=== PATIENT | female | born 1940 | race Caucasian/White ===

== ENCOUNTER 2016-04-27 04:05 | Inpatient (IN) | payer OTHER, MEDICARE ==
[~2016-04-27] VITALS: Ht 157.5 cm; Wt 90.7 kg
[~2016-04-27 04:05] MED LIST: AMANTADINE100 M2 PO; METOPROLOL TART50 M1 PO; NORCO 325 MG-51 TAB PO
--- NOTE | 2016-04-27 09:40 | Operative Report ---
Operative/Inv Procedure Report Surgery Date: 04/27/16 Name of Procedure: Left total knee arthroplasty Pre-Operative Diagnosis: Primary osteoarthritis left knee Post-Operative Diagnosis: Primary osteoarthritis left knee Estimated Blood Loss: less than 50ml Surgeon/Air Intelligence Specialist: GINA MORGAN,OSWALD Rosas Anesthesia: general endotracheal tube IV Fluids: See anesthesia record Implants: [place] triathlon knee size 4 femur, size 4 tibia, 27 patella, 11 mm polyethylene Drains: None Specimens: Bone Tourniquet: 60 minutes Complications: None Condition: Stable Operative Indication: Patient is a [id number] female with severe osteoarthritis of the left knee which has failed conservative treatment. She was indicated surgical knee replacement. Risks and benefits of procedure were discussed with the patient detail in the office and she wished to proceed. Skilled set of hands was necessary provided by physician media assistant Contreras Rosas weighted with retraction positioning and component assembly throughout the case. Operative/Procedure Note Note: 300 procedure standard Incision made for total knee arthroscopy. Sharp dissection was carried down through the skin and subcutaneous tissue. A medial parapatellar arthrotomy was performed. The patella was everted and the fat pad was removed. Patellar cut was done with the patellar milling system and we are able to resect 10 mm of bone off the patella. We sized patella be a size 27 patella and the jig was placed on the patella for the lug nuts. Once this was done the patella was retracted laterally and protected and the knee was placed in flexion. Intramedullary canal of the femur was entered with a step drill. A distal femoral cutting guide was placed into the intramedullary canal with a 6 valgus cut and 10 mm resection. The distal femoral cut was made without, patient. Next the femoral sizing guide was placed on the distal femur and we sized the femur to be a size 4 femur. A size 4, 4-in-1 cutting block was placed on the distal femur and anterior posterior and chamfer cuts were made without complication. Once this was done the size 4 box cut guide was placed on the femur and the box cut for posterior stabilized knee was performed without, patient all bone was passed off as specimen. At this point the knee was retracted anteriorly after the cruciate ligament was removed and the menisci removed medially and laterally. Next step was to enter the intramedullary canal of the tibia. This was done with a step drill. The tibial cutting guide was placed down the intramedullary canal and a plan resection of 4 mm of bone off of the medial side of the tibia was performed without complication. Bone was passed off as specimen. The tibia was sized to be a size 4 tibia. Trial reduction was done with a 4 tibia, 4 femur and a 9 mm polyethylene insert. The knee had full extension and was stable to varus or valgus stress. Patella tracked nicely with a slight lateral release. The rotation of the tibial component was marked and the cuff once removed. The tibial component was pinned in place and the keel cut guide was made. All entrance removed the knee was pulse lavaged and the cement was mixed on the back table. Components were cemented in place with the tibial component cemented first followed by the femoral component and the patellar button. All excess cement was removed with curettes. The knee was placed in extension with a 9 mm [address] insert in place. Once the cement hardened the knee was again checked for stability there was slight laxity to varus and valgus stress so we went up to an 11 mm polyethylene trial. This allowed for full extension and flexion to 110. Flexion was limited by the patient's body size. It was stable to varus and valgus stress at 0 and 6 the trial insert was removed and a 11 mm polyethylene insert was opened and pinned into place on the tibial component. The knee was pulse lavaged. Tourniquet was released at 60 minutes. Any arterial bleeding was stopped with electrocautery. The arthrotomy is closed with #1 Vicryl interrupted sutures and the tissues were closed with #1 Vicryl and 2-0 Vicryl sutures. Skin was closed philip and sterile dressing was applied. This includes an operative report.
[2016-04-27] MEDS ORDERED: PERCOCET 5-3251 EACH PO (10:19)
[2016-04-27] MEDS ORDERED: COUMADIN5 M2 PO (10:19)
--- NOTE | 2016-04-27 10:23 | Patient Discharge Instructions ---
Discharge Instructions General Discharge Information You were seen/treated for: Left knee pain secondary to osteoarthritis You had these procedures: Left total knee replacement Watch for these problems: Increasing pain, redness, warmth, swelling. Drainage of any type from incision. Inability to bear weight on left leg. Fever greater than 101.5. Do not soak the wound: Yes No bath, but you may shower: Yes Other wound care: Keep wound clean and dry Special Instructions: You are taking a medication called Coumadin. Another name for this medication is warfarin. The purpose of this medication is blood thinning in order to prevent complication known as a blood clot. The dose of this medication is subject to change daily. It is based on lab work called INR. Your INR will be assessed daily in the beginning, and when it is stabilized, it will be assessed 2-[address] Garcia will be made aware of your INR, and will provide the appropriate dose of Coumadin for you to be taking daily. Please await specific instructions regarding your daily dose of Coumadin. Please follow-up with your PCP within a week of discharge Please follow-up with your neurologist within a week of discharge. PLEASE AVOID NARCOTICS IF POSSIBLE CAN WORSEN PATIENT DELIRIUM. USE TYELNOL NEEDED FOR PAIN FIRST LINE AGENT. USE NARCOTICS FOR SEVER PAIN(7-10) Diet Continue normal diet: Yes Recommended Diet: Regular Additional DIET Information: Advance as tolerated Activity Full Activity/No Limits: No Activity Self Limited: Yes Pounds, do NOT lift more than: 10 Acute Coronary Syndrome Inclusion Criteria At DC or during hospital stay patient has or had the following: ACS DIAGNOSIS No Discharge Core Measures Meds if any: Prescribed or Continued at Discharge Meds if any: NOT Prescribed or Continued at Discharge Congestive Heart Failure Inclusion Criteria At DC or during hospital stay patient has or had the following: CHF DIAGNOSIS No Discharge Core Measures Meds if any: Prescribed or Continued at Discharge Meds if any: NOT Prescribed or Continued at Discharge Cerebrovascular accident Inclusion Criteria At DC or during hospital stay patient has or had the following: CVA/TIA Diagnosis No Discharge Core Measures Meds if any: Prescribed or Continued at Discharge Meds if any: NOT Prescribed or Continued at Discharge Venous thromboembolism Inclusion Criteria VTE Diagnosis No VTE Type NONE VTE Confirmed by (Test) NONE Discharge Core Measures - Per Current guidelines, there needs to be overlap - treatment for the first 5 days of Warfarin therapy. - If discharged on Warfarin prior to 5 days of - overlap therapy, the patient will need to be - assessed for post discharge needs including - *Post discharge parental anticoagulation - *Warfarin and/or parental anticoagulation education - *Follow up date to check INR post discharge At least 5 days overlap therapy as Inpatient No Meds if any: Prescribed or Continued at Discharge Note: Overlap Therapy is Warfarin and Anticoagulant Meds if any: NOT Prescribed or Continued at Discharge
--- NOTE | 2016-04-27 10:25 | Surgical Discharge Summary ---
Visit Information Visit Dates Admission Date: 04/27/16 Discharge Date: 04/30/16 History of Present Illness Chief Complaint: Left knee pain secondary to unilateral primary osteoarthritis Medical History Neurological: Parkinson's disease Cardiovascular: hypertension Musculoskeletal: PRIOR LEFT WRIST FRACTURE Surgical History Pertinent Surgical History: non-contributory Psychosocial History Who Do You Live With? Family Services at Home: None What is Your Primary Language? Setswana Review of Systems: See H&P Hospital Course Course Attending Physician: OSWALD FUENTES MD Primary Care Physician: NIKOLAY CARDOZA MD Hospital Course: Alpa was admitted to the hospital on 04/27/2016 for an elective left total knee replacement. She tolerated the procedure well. She was transferred to a general surgical floor. Her diet was advanced and tolerated. Her vital signs were stable and within normal limits. On the night of 04/27/2016-04/28/2016 she appeared to have mental status change along with difficulty with speech and possible cranial nerve deficit. Differential diagnosis included drug induced delirium versus CVA. A stroke alert was called. A CT scan of her brain demonstrated prior infarct. Her primary care was transferred to the medical service. Allergies: Coded Allergies: Penicillins (Intermediate, RASH 04/27/16) grapefruit (UNKNOWN 04/27/16) Disposition Summary Disposition Principal Diagnosis: Left knee unilateral primary osteoarthritis Additional Diagnosis: None Discharge Disposition: SNF Discharge Instructions General Discharge Information Code Status: Full Code Patient's Diet: Regular, advance as tolerated Patient's Activity: Weight-bear as tolerated on left leg Follow-Up Instructions/Appts: Please contact Dr. Fuentes's office to arrange and/or confirm follow-up appointment. He would like for you to be seen in his office in 2 weeks to 4 weeks from date of surgery Medications at Discharge Discharge Medications: Continue taking these medications: Metoprolol Tartrate (Metoprolol Tartrate) 50 MG TABLET 1.5 Tablet ORAL TWICE DAILY Comments: Last Taken: 04/30/16 Time: 10:00 AM Amantadine HCl (Amantadine) 100 MG TABLET 100 Milligram ORAL TWICE DAILY Comments: Last Taken: 04/30/16 Time: 10:00 AM Start taking the following new medications: Oxycodone HCl/Acetaminophen (Percocet 5-325 MG Tablet) 5 MG-325 MG TABLET 1-2 Tablet ORAL EVERY 4-6 HOURS as needed for pain Qty = 15 No Refills Comments: NOT TAKEN IN HOSPITAL. Warfarin Sodium (Coumadin) 5 MG TABLET 1 Tablet ORAL DAILY Qty = 30 No Refills Comments: Last Taken: 04/29/16 Time: 5:00 PM Acetaminophen (Tylenol) 325 MG TABLET 650 Milligram ORAL DAILY Qty = 30 No Refills
[2016-04-27 12:00] VITALS: BP 168/88
[2016-04-27 14:17] VITALS: BP 160/90
--- NOTE | 2016-04-27 14:21 | PN- Student ---
GRAY PARISH 04/27/16 1787: Subjective Subjective: Patient denies any acute events in immediate post op period, but is complaining of a headache and pain in her upper left thigh. She denies any chest pain, shortness of breath, nausea, vomiting, or numbness or tingling in her extremities. Objective Objective: Vitals: BP:168/88 Pulse:100 Resp:18 Temp:98.5F SpO2: 95% 1LPM NC Physical Exam: General: Well-appearing, in no acute distress. Alert and oriented to person place time and event. Skin: [place] warm and dry. Head: Normocephalic, atraumatic. Eyes: PERRL, EOMI. Cardiac: Regular rate and rhythm, normal S1/S2. No murmurs, rubs or gallops. Pulmonary: Clear to auscultation bilaterally, no wheezes, rales or rhonchi. Abdomen: Normoactive bowel sounds, soft, non-distended, non-tender. Extremities: 2+ bilateral radial and dorsalis pedis pulses. Right arm positive for resting temors. Left leg wrapped in ute bandage with OnQ in place with no obvious drainage. Left foot mildy pitting edema and erythema. Motor and sensory intact. Results Results: Microbiology 04/27 0800 URINE ROUT: Urine Culture - RECD Assessment/Plan Assessment: Patient is a 75 year old female with a history of parkinson's diesese who is POD #0 s/p left total knee replacement without complications. Plan: -Continue pain managment as ordered. -Regular diet. -Initiate physical therapy, weight bearing as tolerated. -Monitor I/O's. -Discontinue strong in am 04/28/16. -Continue home meds prn. -ALPs, encourage ambulation as permitted and coumadin for DVT ppx. -Encourage incentive spirometry. -Wean from oxygen. -Follow up with am labs. Will discuss above with PA surgical team. Gray HENRY-S2 MANE SILVEIRA 04/27/16 2587: Assessment/Plan Plan: agree with above PA-S note janice-operative vancomycin x 1 coumadin - dvt ppx may consider hospitalist consult will d/w
[2016-04-27 20:30] VITALS: BP 130/70
[2016-04-28 04:24] VITALS: BP 130/72
--- NOTE | 2016-04-28 04:35 | NUR ---
NSG NOTE: PT BECOMING INCREASINGLY CONFUSED AND AGITATED THROUGHOUT THE NIGHT. PT SCREAMING, BECOMING COMBATIVE AND TRYING TO CLIMB OUT OF BED. SURGICAL PA BRIANA CALLED AND MADE AWARE. ORDER OBTAINED FOR ONE TIME DOSE OF IV ATIVAN AND ADMINISTERED TO PT. PT APPEARS TO BECOMING LESS AGITATED. WILL MONITOR.
--- NOTE | 2016-04-28 05:27 | Event Note ---
Event Note Event Note: 75 year-old female with a past medical history significant for hypertension, Parkinson's disease, osteoarthritis, diverticular disease, colonic polyps status post polypectomy on May 17, 2011, total right knee replacement, obesity. She is status post left TKA. Called by surgical PA to evaluate slurring of speech. Surgical PA was intially called to eval agitation. She had rec'd ativan. Unknown baseline. Afebrile, BP 140/76, HR 70, SaO2 96% on 2L NC. A,A,Ox to self. +S1/S2 RRR, CTABL. Limited neurological exam because patient is unable to fully participate. Right facial droop, 3/5 strength RUE, 5/5 LUE, decreased right hand cloth examiner hand strength. CN II,III,IV- intact. Garbled speech. EKG NSR, RRR Suspect acute CVA versus post-op or drug induced delirium. Plan: Stat CT F/u MRI Cont tele monitor neurochecks q4 Aspirin CA Lipid profile Keep NPO Formal swallow eval Neurology consultation
--- NOTE | 2016-04-28 05:32 | PN- Orthopedic ---
Subjective Subjective: S/P LEFT TKA CALLED BY NURSING WITH C/O AGITATION/COMBATIVE BEHAVIOR PULLING AT DRESSINGS AND TRYING TO GET OUT OF BED. ATIVAN 1MG GIVEN UPON ARRIVAL TO FLOOR PATIENT ALERT TO NAME PLACE AND PRIMARY PHYSICIAN NAME NOT SURE WHY SHE IS AT [facility] AND DID NOT KNOW SHE HAD SURGERY DENIES CP, SOB, BLURRED VISION SLURRING SPEECH Objective Vital Signs and I&Os Vital Signs Date Time Temp Pulse Resp B/P Pulse O2 O2 Flow FiO2 Ox Delivery Rate 04/28 0509 96 Nasal 1.0L Cannula 04/28 0424 97.9 68 20 130/72 97 Nasal 1.0L Cannula 04/28 0000 98 Nasal 1.0L Cannula 04/27 2030 98.1 64 20 130/70 98 Nasal 1.0L Cannula 04/27 1417 98.1 87 20 160/90 96 Nasal 2.0L Cannula 04/27 1200 97.5 100 18 168/88 95 Nasal 2.0L Cannula 04/27 1200 95 Nasal 2.0L Cannula Intake & Output 04/28 0800 04/28 0000 04/27 1600 04/27 0800 04/27 0000 04/26 1600 Intake Total 715 800 Output Total 1000 Balance 715 -200 Intake, IV 475 300 Intake, Oral 240 500 Output, Urine 1000 Patient 200 lb Weight Physical Exam: HEENT: ANA, RIGHT SIDED FACIAL DROOP, RIGHT TOUNGE DEVIATION CV: RRR LUNGS: CLEAR ABD: SOFT, +BS EXT: PARKINSON LIKE TREMORS BILAT UPPER EXTREMITIES WARM, PULSES INTACT Assessment/Plan Assessment/Plan R/O NEW ONSET STROKE PLAN RR/STROKE CALLED EKG, STAT LABS STAT HEAD CT Core Measures/Miscellaneous Venous Thromboembolism VTE Risk Factors: Age > 40, Surgery VTE Contraindications: No Contraindications VTE Diagnosis: No Beta Raven Is Beta Raven a Home Med? No Antibiotics Is Patient on Antibiotics? Yes
[2016-04-28 05:37] LABS: ABSOLUTE BASOPHIL COUNT 0 /CUMM (0.0-0.2); ABSOLUTE EOSINOPHIL COUNT 0 /CUMM (0.0-0.7); ABSOLUTE GRANULOCYTE CT 10.4 /CUMM (1.4-6.5); ABSOLUTE LYMPH COUNT 0.7 /CUMM (1.2-3.4); ABSOLUTE MONOCYTE COUNT 1.3 /CUMM (0.10-0.60); BASOPHIL % 0 % (0.0-2.0); EOSINOPHIL % 0.1 % (0-5); GRANULOCYTE % 83.9 % (42.2-75.2); HEMATOCRIT 37.9 % (37-47); MEAN CORPUSCULAR HGB 32.5 PG (27.0-31.0); MEAN CORPUSCULAR HGB CONC 33.2 G/DL (33.0-37.0); MEAN PLATELET VOLUME 11.1 FL (7.4-10.4); PLATELET COUNT 115 /CUMM (130-400); RBC DISTRIBUTION WIDTH 13.6 % (11.5-14.5); RED BLOOD CELL CT 3.87 /CUMM (4.20-5.40); WHITE BLOOD CELL COUNT 12.4 /CUMM (4.8-10.8)
[2016-04-28 05:40] LABS: PT 12.9 SEC (9.4-12.5)
[2016-04-28 05:57] VITALS: BP 108/60
--- NOTE | 2016-04-28 06:01 | CT SCAN REPORT ---
EXAMINATION: CT HEAD WITHOUT CONTRAST CLINICAL INFORMATION: Slurred speech COMPARISON: None TECHNIQUE: Contiguous axial imaging was performed from the skull base to vertex without intravenous administration of contrast. DLP: 1058.32 mGy-cm FINDINGS: There is age-appropriate mild atrophy with prominence of the ventricles and sulci. There is hypodensity of the external capsule on the left measuring 6 mm, axial image 22 (2). This is consistent with a small lacunar infarct. There is no evidence of acute intracranial hemorrhage or acute territorial infarction. No abnormal mass effect or midline shift is seen. Lynn to white matter differentiation is well preserved. No extra-axial fluid collections are identified. The ventricles are normal in size. Normal variant of cavum septum pellucidum and cavum septum vergae. There is vascular calcification of the internal carotid arteries bilaterally. The osseous structures and soft tissues are normal. The mastoid air cells and visualized portions of the paranasal sinuses are well aerated. IMPRESSION: No acute intracranial abnormality. Small lacunar infarct in the external capsule on the left. This critical result was discussed with Dr. Costello on 04/28/2016, 5:50 AM and it was ascertained that the content and urgency of the report was understood at the time of direct communication.
--- NOTE | 2016-04-28 07:42 | PN- Orthopedic ---
Surgical Brief Attending Note Brief Attending Note: The notes from her this morning were reviewed. The physician mailing machine assistant Rock Brewer had contacted me this morning and let me know by phone that the patient had been sent down for a CAT scan due to possible stroke. The patient seen this morning she is not combative. She is awake and alert. We will continue his care as per medicine recommendations. As far as her knee goes the left knee is postop day [address]ings in place. The left lower extremity is grossly neurovascularly intact. Plan continue care per medicine for possible CVA or TIA. The patient will have labs followed up today. She will start physical therapy.
[2016-04-28 08:15] VITALS: BP 122/70
--- NOTE | 2016-04-28 08:16 | PN- Housestaff ---
TEQUILA MORGAN,JAMIE 04/28/16 0816: Subjective Follow-up For: Follow-up acute stroke under evaluation Parkinsonism Total left knee arthroplasty on 04/27/2016 Complaints: no complaints Tele-Events Since Last Visit: Normal sinus rhythm, no any overnight events Subjective: Patient is seen and examined at the bedside. She was not oriented to time, place and person. Although she is following all the verbal command. Her speech is less comprehensive, slurred, but she was able to form complete sentences. Review of Systems Constitutional: Denies: no symptoms. Comments: Cannot comment because of the patients clinical status Objective Last 24 Hrs of Vital Signs/I&O Vital Signs Date Time Temp Pulse Resp B/P Pulse O2 O2 Flow FiO2 Ox Delivery Rate 04/28 1716 89 138/60 04/28 1607 99.4 90 20 138/60 97 Nasal 1.0L Cannula 04/28 1230 Nasal 1.0L Cannula 04/28 1205 Nasal 1.0L Cannula 04/28 0815 98.1 72 20 122/70 98 Nasal 1.0L Cannula 04/28 0800 Nasal 1.0L Cannula 04/28 0557 97.7 68 18 108/60 97 Nasal Cannula 04/28 0509 96 Nasal 1.0L Cannula 04/28 0424 97.9 68 20 130/72 97 Nasal 1.0L Cannula 04/28 0000 98 Nasal 1.0L Cannula 04/27 2030 98.1 64 20 130/70 98 Nasal 1.0L Cannula Intake & Output 04/28 1600 04/28 0800 04/28 0000 Intake Total 375 715 Output Total 300 800 Balance -300 -425 715 Intake, IV 375 475 Intake, Oral 240 Output, Urine 300 800 Physical Exam General Appearance: Alert, Cooperative, No Acute Distress Skin: left knee is dressed in dressing Cardiovascular: Normal S1, Normal S2, No Murmurs Lungs: Clear to Auscultation, Normal Air Movement Abdomen: Soft, distended Neurological: speech is less comprehensable , left facial droop, able to lift both hands against gravity, able to move both legs Extremities: bilateral non pitting edema, pulses are palpable, left knee was non tender Vascular: Normal Pulses, Pulses Symmetrical Assessment/Plan Assessment: Patient is a 75-year-old morbidly obese female with significant past medical history of Parkinsons Disease, diverticular disease, colonic polyps status post polypectomy(2011), hypertension, severe osteoarthritis s/p total right knee replacement (2011), admitted for total left knee replacement done on 04/27/2016. On 04/27/2016 She had an episode of slurring of speech along with weakness in right upper and lower extremity which lasted for couple of hours. 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 As she feels bedside swallow evaluation initially, she was given P/R aspirin. Follow-up MRI on 04/28/2016 confirmed these findings and carotid Doppler showed No evidence for hemodynamically significant stenosis in the external/internal carotid arteries.Neurologic consultation was taken and they advised to follow-up with Dr. Phillips as an outpatient. Problem list- total left knee replacement on 04/27/2016 Parkinsons Disease, diverticular disease, colonic polyps status post polypectomy(2011), hypertension, severe osteoarthritis s/p total right knee replacement (2011), Plan - Possible discharge tomorrow Postoperative delirium with mild cognitive impairment * We will continue telemetry monitoring * Neuro check every 4 hourly * Strict intake output charting * Avoid sedating/hypnotics * We will recheck CBC, BEP, lipid profile tomorrow total left knee replacement on 04/27/2016 * Pain medication according to her pain scale * We will continue tab warfarin 5 mgs once a day for 2-4 weeks * Physical therapy * Early mobilization/OOB Parkinsonism * We will continue tab Amantadine 100 mgs BID * advised to follow-up with Dr. Phillips as an outpatient. Hypertension * We will continue tablet metoprolol 50 milligrams 1.5 tablet twice a day * We will start her on Atorvastatin 40mg and revise dose according to lipid profile Diet -heart healthy diet, she passed swallow evaluation on 04/28/2016 DVT prophylaxis-Early mobilization/warfarin CODE STATUS-full code Problem List: 1. Status post total left knee replacement 2. Morbid obesity 3. Hypertension 4. Parkinsonism 5. Postoperative delirium Pain Ratin Pain Location: left knee Pain Goal: Remain pain free Pain Plan: mild Tomorrow's Labs & Rationales: CBC, BEP-post operative follow-up Lipid panel -screening for hyperlipidemia DVT/Prophylaxis: mechanical, pharmacological LANA PACHECO MD 04/28/16 1246: Attending Review Statement Attending Statement Attending MD Statement: examined this patient, discuss w/resident/PA/IMPLEMENTATION ANALYST, agreed w/resident/PA/IMPLEMENTATION ANALYST, reviewed EMR data (avail) Attending Assessment/Plan: 75F with left total knee replacement yesterday, developed slurred speech and right sided weakness ovrnight, transferred to medicine service for possible CVA. Today with confused speech, mild left facial droop, no extremity weakness, cranial nerves intact. CT shows acute vs chronic lacunar infarct, MRI negative for infarction or bleed. No telemetry events. BP 120/86. Plan - Continue on telemetry - ASA and statin - Neurology consult - Obtain carotid doppler - Formal swallow valuation (failed bedside swallow) - Ortho recommendations for knee - Pain control - Neuro checks - PT eval - DVT PPx
--- NOTE | 2016-04-28 08:27 | NUR ---
NSG NOTE: PT REMAINS CONFUSED BUT BECOMING LESS ANXIOUS AND AGITATED AFTER ADMINISTRATION OF IV ATIVAN. PT STILL PULLING AT BONILLA AND L KNEE DSG. PT ALSO NOTED TO HAVE INCREASED IN SLURRING OF SPEECH. SURGICAL ELAINE WARREN AND RESIDENT OLEG IN ROOM TO ASSESS PT. PER RESIDENT OLEG, PT SHOWING SLIGHT RIGHT FACIAL DROOP ALONG WITH SLURRING OF SPEECH. RAPID RESPONSE CALLED. STAT EKG ORDERED AND DONE AT BEDSIDE BY MST. LABS ORDERED AND DRAWN. PT PLACED ON HEART MONITOR. ORDER PLACED FOR STAT CT HEAD AND TRANSFER TO TELEMETRY. NURSE PROSTHODONTIST DOWN WITH PT TO CT SCAN. REPORT CALLED TO KHALIDA HERNANDEZ. SEE RAPID RESPONSE SHEET.
--- NOTE | 2016-04-28 08:51 | NUR ---
PHYSICAL THERAPY. Pt TRANSFERED TO TELE POD-1 S/P L TKA W/ STROKE ALERT. HEAD CT DEMONSTRATES SMALL L LACUNAR INFARCT, PENDING MRI AND CAROTID US. ORTHO NOTE RECOMMENDS CONTINUED PT. PT WILL F/U APPROPRIATE, DEFERRING UNTIL WORK-UP COMPLETE.
--- NOTE | 2016-04-28 11:19 | NUR ---
SPEECH THERAPY: ORDER RECEIVED FOR SWALLOW EVALUATION. PT CURRENTLY PARTICIPATING IN ULTRASOUND, THEN MRI. UNABLE TO BE SEEN. RN TO PAGE ST WHEN PT RETURNS.
--- NOTE | 2016-04-28 11:20 | MRI REPORT ---
EXAMINATION: MR BRAIN WITHOUT CONTRAST CLINICAL INFORMATION: 75-year-old woman with weakness and confusion. COMPARISON: 04/28/[address] TECHNIQUE: MRI of the brain without contrast was obtained using routine sequences. FINDINGS: Images are degraded by patient motion. Mild chronic microvascular ischemic changes are suggested throughout the supratentorial white matter. No focal reduced diffusion is seen to suggest acute or subacute cerebral ischemia. No intracranial mass, intracerebral edema, intra-axial blood products, midline shift, or extra-axial collection is visualized. The ventricles and sulcal spaces appear normal. Minimal mucosal thickening is noted in the maxillary sinuses. IMPRESSION: Motion degraded exam demonstrates no convincing evidence of acute cerebral ischemia or hemorrhage. Mild presumed chronic small vessel ischemic changes.
--- NOTE | 2016-04-28 11:55 | ULTRASOUND REPORT ---
EXAMINATION: DUPLEX BILATERAL CAROTID ULTRASOUND CLINICAL INFORMATION: Left sided acute lacunar infarct.. COMPARISON: None. TECHNIQUE: Real-time ultrasound and Doppler techniques (integrating B-mode 2D vascular images, Doppler spectral analysis and color flow Doppler imaging) were utilized to interrogate the extracranial carotid and vertebral arteries bilaterally. The degree of stenosis determined by criteria similar to NASCET. FINDINGS: Right side: 1. Minimal amount of plaque is seen in the ECA/ICA region. 2. The common carotid artery velocity is 103 cm/s. 3. The internal carotid artery velocities are 65 cm/s systolic and 16 cm/s diastolic. 4. The external carotid artery velocity is 90 cm/s. Left side: 1. Small amount of plaque is seen in the ECA/ICA region. 2. The common carotid artery velocity is 91 cm/s. 3. The internal carotid artery velocities are 66 cm/s systolic and 15 cm/s diastolic. 4. The external carotid artery velocity is 118 cm/s. ADDITIONAL FINDINGS: 1. The vertebral arteries show antegrade flow. IMPRESSION: 1. RIGHT: Minimal, nonhemodynamically significant stenosis of the proximal right internal carotid artery corresponding to a 0-49% stenosis by velocity criteria. 2. LEFT: Minimal, nonhemodynamically significant stenosis of the proximal left internal carotid artery corresponding to a 0-49% stenosis by velocity criteria. 3. No evidence for hemodynamically significant stenosis in the external carotid arteries.
--- NOTE | 2016-04-28 12:56 | Cons- Neurology ---
General Information and HPI Consulting Request Date of Consult: 04/28/16 Requested By: GINA MORGAN,OSWALD Taveras History of Present Illness: 25-year-old female with history of Parkinson's disease, questionable mild dementia and degenerative joint disease, found to be agitated and dysarthric following knee surgery. Stroke syndrome was considered however subsequent MRI of the brain was unremarkable. Neurology has been asked to comment. She has no known history of TIA or CVA. Allergies/Medications Allergies: Coded Allergies: Penicillins (Intermediate, RASH 04/27/16) grapefruit (UNKNOWN 04/27/16) Home Med List: Amantadine HCl (Amantadine) 100 MG TABLET 100 MG PO BID PARKINSONS (Reported) Metoprolol Tartrate 50 MG TABLET 1.5 TAB PO BID BP (Reported) Review of Systems Review of Systems: Limited however notable for diminished hearing, shuffling gait, joint pains and reported confusion. No history of diplopia, chest pain, vomiting, cough or abnormal bleeding Past History Medical History Neurological: Parkinson's disease EENT: NONE Cardiovascular: hypertension Respiratory: NONE Gastrointestinal: NONE Hepatic: NONE Renal: NONE Musculoskeletal: degen joint disease, osteoarthritis, PRIOR LEFT WRIST FRACTURE Psychiatric: NONE Endocrine: hypothyroidism, (??) Blood Disorders: NONE Cancer(s): NONE BUSINESS SERVICES ADMINISTRATOR/Reproductive: NONE Surgical History Surgical History: non-contributory Psychosocial History Services at Home: None Smoking Status: Unknown If Ever Smoked Exam & Diagnostic Data Vital Signs and I&O Vital Signs Date Time Temp Pulse Resp B/P Pulse O2 O2 Flow FiO2 Ox Delivery Rate 04/28 1230 Nasal 1.0L Cannula 04/28 1205 Nasal 1.0L Cannula 04/28 0815 98.1 72 20 122/70 98 Nasal 1.0L Cannula 04/28 0557 97.7 68 18 108/60 97 Nasal Cannula 04/28 0509 96 Nasal 1.0L Cannula 04/28 0424 97.9 68 20 130/72 97 Nasal 1.0L Cannula 04/28 0000 98 Nasal 1.0L Cannula 04/27 2030 98.1 64 20 130/70 98 Nasal 1.0L Cannula 04/27 1417 98.1 87 20 160/90 96 Nasal 2.0L Cannula Intake & Output 04/28 1600 04/28 0800 04/28 0000 Intake Total 375 715 Output Total 800 Balance -425 715 Intake, IV 375 475 Intake, Oral 240 Output, Urine 800 Elderly, obese white female in no acute distress. The head was normocephalic and atraumatic. She was awake, alert and cooperative. Speech was fluent. She knew the name of our current president however was disoriented to month. Pupils were equal and reactive. Extraocular movements were full. Facial strength was intact bilaterally. Hearing was impaired. Tongue was midline. Motor examination showed increased tone at the wrists bilaterally. There was no resting tremor. There was no lateralizing weakness however manual muscle testing was limited in the left lower extremity due to her recent surgery. Joint position sense was intact. Plantars were equivocal. Assessment/Plan Assessment: The clinical history is suggestive of postoperative delirium as opposed to stroke syndrome. Her examination is nonfocal and her MRI was unrevealing. There may be some underlying mild cognitive impairment. She has been a patient of my associate, Dr. Phillips. We will attempt to review her prior records. Recommendations: We would wish to avoid nonessential narcotic analgesics, soporific agents or sedatives. She should be up and around as per the orthopedic surgery service. She may continue her amantadine which she has been taking for her Parkinson's disease. Follow-up would be advised with Dr. Phillips within several weeks following her discharge. Consult Acknowledgment - Thank you for your consult request.
[2016-04-28 16:07] VITALS: BP 138/60
[2016-04-28 23:29] VITALS: BP 128/80
--- NOTE | 2016-04-29 06:50 | PN- Orthopedic ---
See Addendum Subjective Subjective: POD #2 s/p left TKR. Resting in bed. No complaints of pain at present. Denies N/V, F/C, CP/SOB. Tolerating a regular diet. Strong in place. Objective Vital Signs and I&Os Vital Signs Date Time Temp Pulse Resp B/P Pulse O2 O2 Flow FiO2 Ox Delivery Rate 04/29 0929 132/80 04/29 0903 96 Nasal 1.0L Cannula 04/29 0810 98.0 88 20 132/80 92 Room Air 04/29 0000 Nasal 1.0L Cannula 04/28 2329 98.7 90 20 128/80 92 Room Air 04/28 1716 89 138/60 04/28 1607 99.4 90 20 138/60 97 Nasal 1.0L Cannula 04/28 1600 Nasal 1.0L Cannula Intake & Output 04/29 1600 04/29 0800 04/29 0000 04/28 1600 04/28 0800 04/28 0000 Intake Total 600 1080 375 715 Output Total 6650 300 300 800 Balance -6050 780 -300 -425 715 Intake, IV 600 600 375 475 Intake, Oral 480 240 Output, Urine 6650 300 300 800 Physical Exam: Gen: AAOx1 in NAD, family at bedside-patient at baseline Cor: S1+S2+ Lungs: CTA mat Abd: soft, NT, ND, +BS x4 Ext: dressing to left leg changed. Incision C/D/I with philip. No drainage or erythema noted. Edema noted surrounding knee incision. Current Medications: Current Medications Sig/[place] Start time Last Medication Dose Route Stop Time Status Admin Al Hydroxide/Mg 30 ML Q6P PRN 04/27 1230 AC Hydroxide PO Amantadine HCl 100 MG BID 04/27 1000 AC 04/29 PO 0929 Aspirin 81 MG DAILY 04/28 1616 DC 04/28 PO 1716 Atorvastatin Calcium 40 MG 1700 04/28 1700 DC 04/28 PO 2120 Dextrose/Sodium 1,000 ML Q13H 04/28 0545 DC 04/29 Chloride IV 1012 Docusate Sodium 100 MG .STK-MED ONE 04/28 2109 DC PO 04/28 211 Docusate Sodium 100 MG BID 04/27 2200 AC 04/29 PO 1000 Losartan Potassium 25 MG DAILY 04/28 1523 AC 04/29 PO 0929 Metoprolol Tartrate 75 MG BID 04/28 2200 AC 04/29 PO 0929 Metoprolol Tartrate 75 MG BID 04/28 2200 CAN PO Morphine Sulfate 2 MG Q3P PRN 04/27 1230 DC 04/27 IV 1401 Morphine Sulfate 4 MG Q3P PRN 04/27 1230 DC IV Ondansetron HCl 4 MG Q6P PRN 04/27 1230 AC IV Oxycodone/ 1 TAB Q4P PRN 04/27 1230 DC 04/28 Acetaminophen PO 211 Oxycodone/ 2 TAB Q4P PRN 04/27 1230 DC 04/28 Acetaminophen PO 003 Polyethylene Glycol 17 GM DAILY NEEDED PRN 04/27 1230 AC PO Ropivacaine 500 ML ONCE ONE 04/27 0945 DC ON-Q Ball 1 BAG INJ 04/29 1144 Senna/Docusate Sodium 2 TAB AT BEDTIME NEED.. 04/27 1230 AC 04/29 PO 0930 Warfarin Sodium 5 MG COUMADIN 1700 ONE 04/29 1700 AC PO 04/29 1701 Warfarin Sodium 5 MG COUMADIN 1700 ONE 04/28 1700 DC 04/28 PO 04/28 1701 2114 Results Last 48 Hours of Labs: Laboratory Tests 04/29 04/28 04/28 0925 0622 0600 Chemistry Sodium (137 - 145 mmol/L) 133 L Cancelled Potassium (3.5 - 5.1 mmol/L) 3.9 Cancelled Chloride (98 - 107 mmol/L) 103 Cancelled Carbon Dioxide (22 - 30 mmol/L) 26 Cancelled Anion Gap (5 - 16) 4 L Cancelled BUN (7 - 17 mg/dL) 11 Cancelled Creatinine (0.5 - 1.0 mg/dL) 0.7 Cancelled Estimated GFR (>60 ml/min) > 60 BUN/Creatinine Ratio (7 - 25 %) 15.7 Cancelled Troponin I (< 0.11 ng/ml) < 0.01 Triglycerides (<150 mg/dL) 51 Cholesterol (<200 MG/DL) 126 LDL Cholesterol, Calc (65 - 129 mg/dL) 62 L HDL Cholesterol (40 - 60 mg/dL) 54 Cholesterol/HDL Ratio (0.00 - 4.23 %) 2 Coagulation PT (9.4 - 12.5 SEC) 14.4 H Cancelled INR (0.90 - 1.19) 1.38 H Cancelled Hematology CBC w Diff NO MAN DIFF REQ Cancelled WBC (4.8 - 10.8 /CUMM) 9.0 Cancelled RBC (4.20 - 5.40 /CUMM) 3.21 L Cancelled Hgb (12.0 - 16.0 G/DL) 10.5 L Cancelled Hct (37 - 47 %) 31.7 L Cancelled MCV (81.0 - 99.0 FL) 98.7 Cancelled MCH (27.0 - 31.0 PG) 32.6 H Cancelled RDW (11.5 - 14.5 %) 13.8 Cancelled Plt Count (130 - 400 /CUMM) 84 L Cancelled MPV (7.4 - 10.4 FL) 12.0 H Cancelled Gran % (42.2 - 75.2 %) 69.0 Lymphocytes % (20.5 - 51.1 %) 12.9 L Monocytes % (1.7 - 9.3 %) 16.5 H Eosinophils % (0 - 5 %) 1.3 Basophils % (0.0 - 2.0 %) 0.3 Absolute Granulocytes (1.4 - 6.5 /CUMM) 6.2 Absolute Lymphocytes (1.2 - 3.4 /CUMM) 1.2 Absolute Monocytes (0.10 - 0.60 /CUMM) 1.5 H Absolute Eosinophils (0.0 - 0.7 /CUMM) 0.1 Absolute Basophils (0.0 - 0.2 /CUMM) 0 PUBS MCHC (33.0 - 37.0 G/DL) 33.0 Cancelled 04/28 0500 Chemistry Sodium (137 - 145 mmol/L) 138 Potassium (3.5 - 5.1 mmol/L) 4.6 Chloride (98 - 107 mmol/L) 104 Carbon Dioxide (22 - 30 mmol/L) 26 Anion Gap (5 - 16) 9 BUN (7 - 17 mg/dL) 14 Creatinine (0.5 - 1.0 mg/dL) 0.7 Estimated GFR (>60 ml/min) > 60 BUN/Creatinine Ratio (7 - 25 %) 20.0 Coagulation PT (9.4 - 12.5 SEC) 12.9 H INR (0.90 - 1.19) 1.23 H Hematology CBC w Diff NO MAN DIFF REQ WBC (4.8 - 10.8 /CUMM) 12.4 H RBC (4.20 - 5.40 /CUMM) 3.87 L Hgb (12.0 - 16.0 G/DL) 12.6 Hct (37 - 47 %) 37.9 MCV (81.0 - 99.0 FL) 98.0 MCH (27.0 - 31.0 PG) 32.5 H RDW (11.5 - 14.5 %) 13.6 Plt Count (130 - 400 /CUMM) 115 L MPV (7.4 - 10.4 FL) 11.1 H Gran % (42.2 - 75.2 %) 83.9 H Lymphocytes % (20.5 - 51.1 %) 5.8 L Monocytes % (1.7 - 9.3 %) 10.2 H Eosinophils % (0 - 5 %) 0.1 Basophils % (0.0 - 2.0 %) 0 L Absolute Granulocytes (1.4 - 6.5 /CUMM) 10.4 H Absolute Lymphocytes (1.2 - 3.4 /CUMM) 0.7 L Absolute Monocytes (0.10 - 0.60 /CUMM) 1.3 H Absolute Eosinophils (0.0 - 0.7 /CUMM) 0 Absolute Basophils (0.0 - 0.2 /CUMM) 0 PUBS MCHC (33.0 - 37.0 G/DL) 33.2 Assessment/Plan Assessment/Plan A: POD #2 s/p left TKR; AVSS. Plan: D/C strong catheter. Continue PT mobilization. Case management to eval for STR. Care per primary team. Continue bowel regimen. Core Measures/Miscellaneous Venous Thromboembolism VTE Risk Factors: Age > 40, Surgery VTE Contraindications: No Contraindications VTE Diagnosis: No Beta Raven Is Beta Raven a Home Med? No Antibiotics Is Patient on Antibiotics? Yes
[2016-04-29 08:10] VITALS: BP 132/80
--- NOTE | 2016-04-29 08:58 | PN- Housestaff ---
TEQUILA MORGAN,JAMIE 04/29/16 0858: Subjective Follow-up For: Follow-up acute stroke under evaluation Parkinsonism Total left knee arthroplasty on 04/27/2016 Complaints: no complaints Tele-Events Since Last Visit: EZ OBRIEN Subjective: Patient is seen and examined at the bedside. Her speech is slurred but comprehensible. She was feeling very sleepy. According to the nurse, patient was agitated overnight so was given percocet. She was refusing all blood work up in morning. Review of Systems Constitutional: Denies: no symptoms. Comments: Cannot comment because of the patient's clinical condition Objective Last 24 Hrs of Vital Signs/I&O Vital Signs Date Time Temp Pulse Resp B/P Pulse O2 O2 Flow FiO2 Ox Delivery Rate 04/29 0929 132/80 04/29 0903 96 Nasal 1.0L Cannula 04/29 0810 98.0 88 20 132/80 92 Room Air 04/29 0000 Nasal 1.0L Cannula 04/28 2329 98.7 90 20 128/80 92 Room Air 04/28 1716 89 138/60 04/28 1607 99.4 90 20 138/60 97 Nasal 1.0L Cannula 04/28 1600 Nasal 1.0L Cannula Intake & Output 04/29 1600 04/29 0800 04/29 0000 Intake Total 600 1080 Output Total 6650 300 Balance -6050 780 Intake, IV 600 600 Intake, Oral 480 Output, Urine 6650 300 Physical Exam General Appearance: Cooperative, No Acute Distress Skin: No Rashes, No Breakdown, left knee is well dressed under dressing. Cardiovascular: Normal S1, Normal S2 Lungs: Clear to Auscultation, Normal Air Movement Abdomen: Soft, No Tenderness Neurological: slurred speech Extremities: bilateral non pitting edema Vascular: Normal Pulses Assessment/Plan Assessment: Patient is a 75-year-old morbidly obese female with significant past medical history of Parkinsons Disease, diverticular disease, colonic polyps status post polypectomy(2011), hypertension, severe osteoarthritis s/p total right knee replacement (2011), admitted for total left knee replacement done on 04/27/2016. On 04/27/2016 She had an episode of slurring of speech along with weakness in right upper and lower extremity which lasted for couple of hours. 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 As she feels bedside swallow evaluation initially, she was given P/R aspirin. Follow-up MRI on 04/28/2016 confirmed these findings and carotid Doppler showed No evidence for hemodynamically significant stenosis in the external/internal carotid arteries.Neurologic consultation was taken and they advised to follow-up with Dr. Phillips as an outpatient. Problem list- total left knee replacement on 04/27/2016 Parkinsons Disease, diverticular disease, colonic polyps status post polypectomy(2011), hypertension, severe osteoarthritis s/p total right knee replacement (2011), Plan - Possible discharge tomorrow Postoperative delirium with mild cognitive impairment * We will continue telemetry monitoring * Neuro check every 4 hourly * Intake output charting * Avoid sedating/hypnotics - No PERCOCET/NO MORPHINE * We will recheck CBC - Hb 10.5, BEP- wnl, lipid profile - wnl. total left knee replacement on 04/27/2016 * Pain medication according to her pain scale * We will continue tab warfarin 5 mgs once a day for 2-4 weeks * Physical therapy * Early mobilization/OOB * Avoid all sedative/hypnotics and use tylenol for pain * we will remove catheter today. Parkinsonism * We will continue tab Amantadine 100 mgs BID * advised to follow-up with Dr. Phillips as an outpatient. Hypertension * We will continue tablet metoprolol 50 milligrams 1.5 tablet twice a day * We will start her on Atorvastatin 40mg and revise dose according to lipid profile Diet -heart healthy diet, she passed swallow evaluation on 04/28/2016 DVT prophylaxis-Early mobilization/warfarin CODE STATUS-full code Problem List: 1. Status post total left knee replacement 2. Postoperative delirium 3. Morbid obesity 4. Hypertension 5. Parkinsonism Pain Ratin Pain Location: left knee Pain Goal: Remain pain free Pain Plan: avoid sedative hypnotics use only tylenol Tomorrow's Labs & Rationales: PT/INR, as pt is on warferin DVT/Prophylaxis: mechanical, pharmacological LANA PACHECO MD 04/29/16 1053: Attending MD Review Statement Attending Statement Attending MD Statement: examined this patient, discuss w/resident/PA/DIANETICIST, agreed w/resident/PA/DIANETICIST, reviewed EMR data (avail) Attending Assessment/Plan: 75F with left total knee replacement yesterday, developed slurred speech and right sided weakness ovrnight, transferred to medicine service for possible CVA. No evidence of neurologiclal dysfunction, neuro exam normal. CT shows acute vs chronic lacunar infarct, MRI negative for infarction or bleed. No telemetry events. BP 120/86. 1. Left total knee replacement 2. Post-operative delirium Plan - Continue on telemetry - ASA and statin - Neurology consult - Obtain carotid doppler - Formal swallow valuation (failed bedside swallow) - Ortho recommendations for knee - Stop Percocet, avoid benzos or sedatives until delirium improves. May give Tylenol for pain. - Neuro checks - PT eval - DVT PPx
--- NOTE | 2016-04-29 10:06 | Discharge Summary ---
See Addendum Visit Information Visit Dates Admission Date: 04/27/16 Discharge Date: 04/30/16 Hospital Course Course Attending Physician: GINA MORGAN,OSWALD Taveras Primary Care Physician: NIKOLAY CARDOZA MD Hospital Course: Mrs. Storey is a 75 year-old female with a past medical history significant for hypertension, Parkinson's disease, osteoarthritis, diverticular disease, colonic polyps status post polypectomy on May 17, 2011, total right knee replacement, obesity. She was admitted to the hospital for an elective left total knee replacement on 04/27/16. She tolerated the procedure well. She was transferred to a general surgical floor. Her diet was advanced and tolerated. Her vital signs were stable and within normal limits. On the night of 04/27/2016-04/28/2016 she appeared to have mental status change along with difficulty with speech and possible cranial nerve deficit. Differential diagnosis included drug induced delirium versus CVA. A stroke alert was called. A CT scan of her brain demonstrated prior infarct. Her primary care was transferred to the medical service. Upon further cup by the medical team as well as neurology, she was deemed to have an altered mental status most likely secondary to postop delirium, as an MRI ruled out "convincing evidence of acute cerebral ischemia or hemorrhage. Mild presumed chronic small vessel ischemic changes". The cause of her acute change in mental status was attributed to medications and post op delirium. She was managed on the medical floor for the following problems: Altered Mental Status * CVA ruled out by MRI * post op delirium was determined the most likely etiology of her mental status changes, although she does have baseline cognitive impairment associated with parkinsons disease. * Opioid medications reduced and she was monitored on the neurocardiac telemetry floor. * Please dictate course from 04/29-04/30 if anything has changed Total left knee replacement on 04/27/2016 * Successful TKR * We will reduce pain meds for now until her mental status improves. * We will continue tab coumadin 5 mg once a day for 2-4 weeks for DVT ppx with weekly INR check * Physical therapy with weight bearing as tolerated * Early mobilization/OOB Parkinsonism * We will continue tab Amantadine 100 mgs BID * advised to continue her follow-up with Dr. Phillips as an outpatient. Hypertension * Continue tablet metoprolol 50 milligrams 1.5 tablets, totaling 75mgs twice a day Diet -heart healthy diet, Formal swallow evaluation on 04/28/2016 passed Allergies: Coded Allergies: Penicillins (Intermediate, RASH 04/27/16) grapefruit (UNKNOWN 04/27/16) Disposition Summary Disposition Principal Diagnosis: Left Total Knee replacement Additional Diagnosis: Post op delirium Discharge Disposition: other general hospital Discharge Instructions General Discharge Information Code Status: Full Code Patient's Diet: Heart healthy Patient's Activity: Weight bearing as tolerated Follow-Up Instructions/Appts: Please follow up with Dr. Buckner within 1 week of discharge from rehab. Please follow up with Dr. Phillips, neurology, for continued management of your parkinsons. Medications at Discharge Discharge Medications: Continue taking these medications: Metoprolol Tartrate (Metoprolol Tartrate) 50 MG TABLET 1.5 Tablet ORAL TWICE DAILY Comments: Last Taken: 04/30/16 Time: 10:00 AM Amantadine HCl (Amantadine) 100 MG TABLET 100 Milligram ORAL TWICE DAILY Comments: Last Taken: 04/30/16 Time: 10:00 AM Start taking the following new medications: Oxycodone HCl/Acetaminophen (Percocet 5-325 MG Tablet) 5 MG-325 MG TABLET 1-2 Tablet ORAL EVERY 4-6 HOURS as needed for pain Qty = 15 No Refills Comments: NOT TAKEN IN HOSPITAL. Warfarin Sodium (Coumadin) 5 MG TABLET 1 Tablet ORAL DAILY Qty = 30 No Refills Comments: Last Taken: 04/29/16 Time: 5:00 PM Acetaminophen (Tylenol) 325 MG TABLET 650 Milligram ORAL DAILY Qty = 30 No Refills Copies To: DAY MORGAN,MARSHA Steinberg; GINA MORGAN,OSWALD Taveras
[2016-04-29 11:44] LABS: ABSOLUTE BASOPHIL COUNT 0 /CUMM (0.0-0.2); ABSOLUTE EOSINOPHIL COUNT 0.1 /CUMM (0.0-0.7); ABSOLUTE GRANULOCYTE CT 6.2 /CUMM (1.4-6.5); ABSOLUTE LYMPH COUNT 1.2 /CUMM (1.2-3.4); ABSOLUTE MONOCYTE COUNT 1.5 /CUMM (0.10-0.60); BASOPHIL % 0.3 % (0.0-2.0); EOSINOPHIL % 1.3 % (0-5); MEAN CORPUSCULAR HGB 32.6 PG (27.0-31.0); MEAN CORPUSCULAR VOLUME 98.7 FL (81.0-99.0); RBC DISTRIBUTION WIDTH 13.8 % (11.5-14.5); RED BLOOD CELL CT 3.21 /CUMM (4.20-5.40)
[2016-04-29 11:59] LABS: HEMATOCRIT 31.7 % (37-47)
[2016-04-29 12:06] LABS: PT 14.4 SEC (9.4-12.5)
[2016-04-29 12:09] LABS: PLATELET COUNT 84 /CUMM (130-400)
[2016-04-29 16:36] VITALS: BP 121/71
--- NOTE | 2016-04-29 20:05 | RADIOLOGY REPORT ---
EXAMINATION: XR KNEE, LEFT CLINICAL INFORMATION: Status post left total knee arthroplasty COMPARISON: None TECHNIQUE: Four views of the left knee. FINDINGS: Left total knee arthroplasty is noted with components in the usual position no periprosthetic fracture or suspicious area of lucency. Skin philip are in place. IMPRESSION: Left Total knee arthroplasty without complication by x-ray.
[2016-04-29 22:00] VITALS: BP 130/70
--- NOTE | 2016-04-30 07:44 | PN- Orthopedic ---
See Addendum Subjective Subjective: POD #3 s/p left TKR. Resting comfortably in bed. Received Coumadin last night. Worked with PT, recommending STR. Objective Vital Signs and I&Os Vital Signs Date Time Temp Pulse Resp B/P Pulse O2 O2 Flow FiO2 Ox Delivery Rate 04/29 1755 95 Nasal 1.0L Cannula 04/29 1636 98.4 80 20 121/71 95 Room Air 04/29 0929 132/80 04/29 0903 96 Nasal 1.0L Cannula 04/29 0810 98.0 88 20 132/80 92 Room Air Intake & Output 04/30 0800 04/30 0000 04/29 1600 04/29 0800 04/29 0000 04/28 1600 Intake Total 1701 585 5196 Output Total 550 6650 300 300 Balance 450 -6050 780 -300 Intake, IV 600 600 600 Intake, Oral 400 480 Output, Urine 550 6650 300 300 Physical Exam: Gen: AAOx3 in NAD Cor: S1+S2+ Lungs: CTA mat Abd: soft, NT, ND, +BS x4 Ext: left knee dressing changed. Incision C/D/I wtih philip, surrounding ecchymosis noted. No drainage or erythema noted. Dorsiflexion and plantar flexion intact. Palpable DP pulses mat. Current Medications: Current Medications Sig/[place] Start time Last Medication Dose Route Stop Time Status Admin Al Hydroxide/Mg 30 ML Q6P PRN 04/27 1230 AC Hydroxide PO Amantadine HCl 100 MG BID 04/27 1000 AC 04/29 PO 2143 Atorvastatin Calcium 40 MG 1700 04/28 1700 DC 04/28 PO 2120 Dextrose/Sodium 1,000 ML Q13H 04/28 0545 DC 04/29 Chloride IV 1012 Docusate Sodium 100 MG .STK-MED ONE 04/290 DC PO 04/29 2141 Docusate Sodium 100 MG BID 04/27 2200 AC 04/29 PO 2143 Losartan Potassium 25 MG DAILY 04/28 1523 AC 04/29 PO 0929 Metoprolol Tartrate 75 MG BID 04/28 2200 AC 04/29 PO 2143 Morphine Sulfate 2 MG Q3P PRN 04/27 1230 DC 04/27 IV 1401 Morphine Sulfate 4 MG Q3P PRN 04/27 1230 DC IV Ondansetron HCl 4 MG Q6P PRN 04/27 1230 AC IV Oxycodone/ 1 TAB Q4P PRN 04/27 1230 DC 04/28 Acetaminophen PO 2115 Oxycodone/ 2 TAB Q4P PRN 04/27 1230 DC 04/28 Acetaminophen PO 0034 Polyethylene Glycol 17 GM 5PM 04/29 1700 AC 04/29 PO 1628 Polyethylene Glycol 17 GM DAILY NEEDED PRN 04/27 1230 DC PO Ropivacaine 500 ML ONCE ONE 04/27 0945 DC ON-Q Ball 1 BAG INJ 04/29 1144 Senna/Docusate Sodium 2 TAB AT BEDTIME NEED.. 04/27 1230 AC 04/29 PO 0930 Warfarin Sodium 5 MG COUMADIN 1700 ONE 04/29 1700 DC 04/29 PO 04/29 1701 1627 Results Last 48 Hours of Labs: Laboratory Tests 04/29 09 Chemistry Sodium (137 - 145 mmol/L) 133 L Potassium (3.5 - 5.1 mmol/L) 3.9 Chloride (98 - 107 mmol/L) 103 Carbon Dioxide (22 - 30 mmol/L) 26 Anion Gap (5 - 16) 4 L BUN (7 - 17 mg/dL) 11 Creatinine (0.5 - 1.0 mg/dL) 0.7 Estimated GFR (>60 ml/min) > 60 BUN/Creatinine Ratio (7 - 25 %) 15.7 Triglycerides (<150 mg/dL) 51 Cholesterol (<200 MG/DL) 126 LDL Cholesterol, Calc (65 - 129 mg/dL) 62 L HDL Cholesterol (40 - 60 mg/dL) 54 Cholesterol/HDL Ratio (0.00 - 4.23 %) 2 Coagulation PT (9.4 - 12.5 SEC) 14.4 H INR (0.90 - 1.19) 1.38 H Hematology CBC w Diff NO MAN DIFF REQ WBC (4.8 - 10.8 /CUMM) 9.0 RBC (4.20 - 5.40 /CUMM) 3.21 L Hgb (12.0 - 16.0 G/DL) 10.5 L Hct (37 - 47 %) 31.7 L MCV (81.0 - 99.0 FL) 98.7 MCH (27.0 - 31.0 PG) 32.6 H RDW (11.5 - 14.5 %) 13.8 Plt Count (130 - 400 /CUMM) 84 L MPV (7.4 - 10.4 FL) 12.0 H Gran % (42.2 - 75.2 %) 69.0 Lymphocytes % (20.5 - 51.1 %) 12.9 L Monocytes % (1.7 - 9.3 %) 16.5 H Eosinophils % (0 - 5 %) 1.3 Basophils % (0.0 - 2.0 %) 0.3 Absolute Granulocytes (1.4 - 6.5 /CUMM) 6.2 Absolute Lymphocytes (1.2 - 3.4 /CUMM) 1.2 Absolute Monocytes (0.10 - 0.60 /CUMM) 1.5 H Absolute Eosinophils (0.0 - 0.7 /CUMM) 0.1 Absolute Basophils (0.0 - 0.2 /CUMM) 0 PUBS MCHC (33.0 - 37.0 G/DL) 33.0 Assessment/Plan Assessment/Plan A: POD #3 s/p left TKR; AVSS. Plan: D/C strong catheter if not already removed. PT mobilization to continue. Coumadin daily per INR. Care per primary team. Bowel regimen to continue.
[2016-04-30 08:08] VITALS: BP 116/60
--- NOTE | 2016-04-30 08:17 | PN- Housestaff ---
Subjective Follow-up For: Parkinsonism Total left knee arthroplasty on 04/27/2016 Complaints: no complaints Tele-Events Since Last Visit: Normal sinus rhythm, no any overnight event Subjective: Patient is seen and examined at the bedside. She denies of any active complain. Review of Systems Constitutional: Denies: no symptoms. Cardiovascular: Denies: chest pain. Respiratory: Denies: short of breath. Musculoskeletal: Reports: joint pain, joint swelling. Objective Last 24 Hrs of Vital Signs/I&O Vital Signs Date Time Temp Pulse Resp B/P Pulse O2 O2 Flow FiO2 Ox Delivery Rate 04/30 1227 98.4 72 16 116/60 04/30 1102 72 116/60 04/30 0808 98.4 72 16 116/60 94 Room Air 04/30 0000 Nasal 1.0L Cannula 04/29 2200 98.0 77 20 130/70 95 Nasal 1.0L Cannula Intake & Output 04/30 1600 04/30 0800 04/30 0000 Intake Total 400 100 Output Total 500 Balance 400 -400 Intake, Oral 400 100 Output, Urine 500 Physical Exam General Appearance: Alert, Cooperative, No Acute Distress Cardiovascular: Normal S1, Normal S2 Lungs: Clear to Auscultation, Normal Air Movement Abdomen: Soft, No Tenderness Neurological: slurring and non-comprehensible speech, dementia Extremities: No Clubbing, No Cyanosis, nonpitting edema, probably secondary to obesity, left knee is mildly tender Vascular: Normal Pulses Assessment/Plan Assessment: Patient is a 75-year-old morbidly obese female with significant past medical history of Parkinsons Disease, diverticular disease, colonic polyps status post polypectomy(2011), hypertension, severe osteoarthritis s/p total right knee replacement (2011), admitted for total left knee replacement done on 04/27/2016. On 04/27/2016 She had an episode of slurring of speech along with weakness in right upper and lower extremity which lasted for couple of hours. 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 As she feels bedside swallow evaluation initially, she was given P/R aspirin. Follow-up MRI on 04/28/2016 confirmed these findings and carotid Doppler showed No evidence for hemodynamically significant stenosis in the external/internal carotid arteries.Neurologic consultation was taken and they advised to follow-up with Dr. Phillips as an outpatient. Problem list- total left knee replacement on 04/27/2016 Parkinsons Disease, diverticular disease, colonic polyps status post polypectomy(2011), hypertension, severe osteoarthritis s/p total right knee replacement (2011), Plan - Discharge today Postoperative delirium with mild cognitive impairment * Avoid sedating/hypnotics - No PERCOCET/NO MORPHINE * Hb 10.5, BEP- wnl, lipid profile - wnl. total left knee replacement on 04/27/2016 * Pain medication according to her pain scale * We will continue tab warfarin 5 mgs once a day for 4-5 weeks * Physical therapy * Early mobilization/OOB * Avoid all sedative/hypnotics and use tylenol for pain. Parkinsonism * We will continue tab Amantadine 100 mgs BID * advised to follow-up with Dr. Phillips as an outpatient. Hypertension * We will continue tablet metoprolol 50 milligrams 1.5 tablet twice a day * We stopped atorvastatin as her lipid profile was normal, and patient did not had CVA. Diet -heart healthy diet, she passed swallow evaluation on 04/28/2016 DVT prophylaxis-Early mobilization/warfarin CODE STATUS-full code Problem List: 1. Status post total left knee replacement 2. Postoperative delirium 3. Morbid obesity 4. Hypertension 5. Parkinsonism Pain Ratin Pain Location: Left knee Pain Goal: Remain pain free Pain Plan: Avoid sedatives and hypnotics Tomorrow's Labs & Rationales: Not required as patient is discharged DVT/Prophylaxis: mechanical, pharmacological
[2016-04-30 08:33] LABS: PT 16.5 SEC (9.4-12.5)
[2016-04-30 12:27] VITALS: BP 116/60
[2016-04-30] MEDS ORDERED: TYLENOL325 M1 PO (12:30)
[2016-04-30] MEDS ORDERED: PERCOCET 5-3251 EACH PO (12:30)
--- NOTE | 2016-04-30 13:05 | PN- Att Addend ---
Attending Addendum Attending Brief Note Patient seen and examined. Sitting comfortably in bed, just complains of mild tightness in her left knee. Denies any pain, chest pain, shortness of breath. Son is at the bedside. This 75-year-old female status post left total knee replacement yesterday who developed slurred speech and right-sided weakness post surgery and there was a question of CVA. CVA was ruled out with MRI, and there was no focal deficit. Patient was evaluated by neurologist. All this seemed like a postoperative delirium. Patient did get opioid post surgery which would have played a major role. Today patient is at her baseline, as per the son at bedside. Patient is alert, awake, oriented 3. Heart: S1-S2 heard, normal, no murmur. Lungs: Clear on auscultation. Abdomen: Soft, nondistended, nontender Extremities: Left knee dressing in place. Pulses normal. INR 1.58 today. Patient can be discharged today to [place] . She is doing well. Continue Coumadin, with INR monitoring. Please give clear discharge instructions to avoid narcotics if possible. Use Tylenol for pain if needed, currently patient is not on any narcotics and states she is not complaining of pain but just some tightness in her knee.
== END 2016-04-30 12:45 | DRG 470 ==
LOC: ENRESERVTM → ENRESERVDT → ENPENDDIS 04:05 → SDA 04:05 → 1NO 04:05 → 2NB 11:55 → 1NO 04-28 05:29
PROVIDERS: Physician Assistant; ADMIT Orthopaedic Surgery Foot and Ankle Surgery
PROC: 0SRD0J9 Replacement of Left Knee Joint with Synthetic Substitute, Cemented, Open Approach (ICD-10-PCS; principal; 2016-04-28)
DX: M17.12 Unilateral primary osteoarthritis, left knee (principal); F05 Delirium due to known physiological condition; G20 Parkinson's disease; I10 Essential (primary) hypertension; E66.9 Obesity, unspecified; Z68.36 Body mass index [BMI] 36.0-36.9, adult
CPT/HCPCS: 1NSP; 2NBP; 70551; 36415; 73560-LT; 82436; 87086; 88305; 93005; 93010; 94799; 97110-GO; 97116-GO; 97162-GP; 97164-GP; 97530-GO; C1713; C9290; C9399; J0131; J1885; J2405; J2795; J3370; J3490; J7042; J7060

== ENCOUNTER 2016-05-25 16:21 | Observation (INO) | payer OTHER ==
[~2016-05-25] VITALS: Ht 157.5 cm; Wt 95.3 kg
[~2016-05-25 16:21] MED LIST changes: +COUMADIN5 M2 PO; +PERCOCET 5-3251 EACH PO; +TYLENOL325 M1 PO
--- NOTE | 2016-05-25 16:25 | NUR ---
75 Y/O FEMALE BIBA FROM HOME FOR POSSIBLE UTI AND ALSO PT UNABLE TO CARE FOR SELF AT HOME PER VISITING NURSE. PT HAD LT KNEE REPLACEMENT S/P 3WLKS AGO AND WAS AT [facility] FOR REHAB AND DISCHARGED HOME ON MONDAY. VISITING NURSE CAME IN TODAY AND NOTED PT SITTING IN WHEELCHAIR AND HAS NOT MOVED FOR SOMETIME AND WAS SOAKED IN URINE AND PER PT UNABLE TO GET SELF TO BATHROOM. PT HAS HX OF PROGRESSING PARKINSONS AND PER NIECE HAS WORSENED AND WHEN ACTIVE PT IS UNABLE TO SPEAK COHERENTLY. PT ALSO LIVES WITH SPOUSE WHO PER EMS IS SENILE AND CONFUSED. PT ARRIVES A/OX3 WITH SPEECH SLOW AND OCCASIONAL GARBLED DUE TO PARKINSONS. PT NOTED TO BE STILL SOAKED AND DENIES ANY PAIN AT PRESENT. NIECE OF PT IS AT BEDSIDE AND PT AWAITING PROVIDER CHON
--- NOTE | 2016-05-25 17:04 | ED GI/GU/ABDOMINAL COMPLAINT ---
See Addendum History of Present Illness General Chief Complaint: General Adult Stated Complaint: BIBA WITH UTI Source: patient Exam Limitations: no limitations Allergies Coded Allergies: Penicillins (Intermediate, RASH 04/27/16) grapefruit (UNKNOWN 04/27/16) Reconcile Medications Acetaminophen (Tylenol Arthritis) 650 MG TABLET.ER 1 TAB PO TID PRN pain ( Reported) Amantadine HCl (Amantadine) 100 MG TABLET 100 MG PO BID PARKINSONS (Reported) Metoprolol Tartrate (Lopressor) 50 MG TABLET 1.5 TAB PO BID HTN (Reported) Oxycodone HCl 5 MG TABLET 1-2 TAB PO Q6P PRN moderate pain (Reported) Sennosides/Docusate Sodium (Senna S Tablet) 8.6 MG-50 MG TABLET 1 TAB PO DAILY constipation (Reported) Warfarin Sodium 3 MG TABLET 1 TAB PO DAILY BLD THINNER (Reported) Triage Note: 75 Y/O FEMALE BIBA FROM HOME FOR POSSIBLE UTI AND ALSO PT UNABLE TO CARE FOR SELF AT HOME PER VISITING NURSE. PT HAD LT KNEE REPLACEMENT S/P 3WLKS AGO AND WAS AT [facility] FOR REHAB AND DISCHARGED HOME ON MONDAY. VISITING NURSE CAME IN TODAY AND NOTED PT SITTING IN WHEELCHAIR AND HAS NOT MOVED FOR SOMETIME AND WAS SOAKED IN URINE AND PER PT UNABLE TO GET SELF TO BATHROOM. PT HAS HX OF PROGRESSING PARKINSONS AND PER NIECE HAS WORSENED AND WHEN ACTIVE PT IS UNABLE TO SPEAK COHERENTLY. PT ALSO LIVES WITH SPOUSE WHO PER EMS IS SENILE AND CONFUSED. PT ARRIVES A/OX3 WITH SPEECH SLOW AND OCCASIONAL GARBLED DUE TO PARKINSONS. PT NOTED TO BE STILL SOAKED AND DENIES ANY PAIN AT PRESENT. NIECE OF PT IS AT BEDSIDE AND PT AWAITING PROVIDER EVAL Triage Nurses Notes Reviewed? yes HPI: This is a 75-year-old female with history of Parkinson status post left total knee replacement on April 27 presents via EMS from home. She was just discharged from rehabilitation facility 3 days ago. According to the son she was fine on Monday and yesterday morning. She was able to get up and change her self and was using a walker without difficulty. Today she was found sitting in the same wheelchair covered in urine. She is unable to get up and move. She is unable to lift the right leg as well. They state that she can't live alone on her own. According to the son and the cousin she has never looked "this bad". (MATY LACKEY MD) Vital Signs & Intake/Output Vital Signs & Intake/Output Vital Signs Date Time Temp Pulse Resp B/P B/P Pulse O2 O2 Flow FiO2 Mean Ox Delivery Rate 05/27 0842 97.9 70 20 136/80 94 Room Air 05/26 2355 97.9 68 20 118/70 94 Room Air 05/26 1848 97.8 78 20 128/90 96 Room Air 05/26 1617 97.2 76 17 122/68 95 Room Air 05/26 1329 97.6 88 18 120/70 96 Room Air 05/26 1110 98.2 76 18 102/68 95 Room Air ED Intake and Output 05/27 0000 05/26 1200 Intake Total 300 Output Total Balance 300 Intake, Oral 300 Patient 210 lb Weight ? n Is pt currently ? No (SANTOS MORGAN,MICKEY Taveras) Past History Travel History Traveled to [place] past 21 day No Medical History Neurological: Parkinson's disease EENT: NONE Cardiovascular: hypertension Respiratory: NONE Gastrointestinal: NONE Hepatic: NONE Renal: NONE Musculoskeletal: degen joint disease, osteoarthritis, PRIOR LEFT WRIST FRACTURE Psychiatric: NONE Endocrine: hypothyroidism, (??) Blood Disorders: NONE Cancer(s): NONE SENIOR MATERIALS ANALYST/Reproductive: NONE History of MRSA: No History of VRE: No History of CDIFF: No Surgical History Surgical History: non-contributory Psychosocial History Who do you live with Family Services at Home None What is your primary language Malawian Tobacco Use: Never used ETOH Use: denies use Illicit Drug Use: denies illicit drug use (MATY LACKEY MD) Medical History Any Pertinent Medical History? see below for history Family History Hx Contributory? No (MICKEY PLATT MD) Review of Systems Review of Systems Constitutional: Reports: no symptoms. EENTM: Reports: no symptoms. Respiratory: Reports: no symptoms. Cardiovascular: Reports: no symptoms. GI: Reports: no symptoms. Genitourinary: Reports: no symptoms. Musculoskeletal: Reports: no symptoms. Skin: Reports: no symptoms. Neurological/Psychological: Reports: no symptoms. Hematologic/Endocrine: Reports: no symptoms. Immunologic/Allergic: Reports: no symptoms. All Other Systems: Reviewed and Negative (SANTOS MORGAN,MICKEY Taveras) Physical Exam Physical Exam General Appearance: well developed/nourished, no apparent distress Head: atraumatic, normal appearance Eyes: Bilateral: normal appearance. Ears, Nose, Throat, Mouth: moist mucous membrane Neck: normal inspection, supple Respiratory: normal breath sounds, chest non-tender, no respiratory distress Cardiovascular: regular rate/rhythm Gastrointestinal: normal bowel sounds, soft Back: normal inspection Skin: intact, normal color Core Measures ACS in differential dx? No Severe Sepsis Present: No Septic Shock Present: No (SANTOS MORGAN,MICKEY Taveras) Progress Hand-Off Endorsed To: SANTOS MORGAN,MICKEY Taveras Endorsed Time: 2328 Pending: consult (PT), other (LEG REEVLAUATION (ERYTHEMA)) (ZIYAD MORGAN,MATY) Differential Diagnosis: UTI/pyelo, weakness, deconditioning vs other. Plan of Care: Orders Procedure Date/time Status CBC WITHOUT DIFFERENTIAL 05/27 0811 Complete PROTHROMBIN TIME 05/27 0600 Complete BASIC ELECTROLYTES PLUS BUN&CR 05/27 0600 Complete Heart Healthy Diet 05/26 D Active Vital Signs 05/26 1909 Active Teach/Educate 05/26 1909 Active Pain Treatment and Response 05/26 1909 Active Nutritional Intake, Monitor 05/26 1909 Active Isolation 05/26 1909 Active Intake & Output 05/26 1909 Active Patient Care Conference 05/26 1909 Active Activity/Ambulation 05/26 1909 Active LOWER RESPIRATORY CULTURE 05/26 1745 Active Code Status 05/26 1423 Active PT Evaluate & Treat 05/26 1401 Active Pathway - chart 05/26 1401 Active House Staff 05/26 1401 Active Code Status 05/26 1401 Complete Patient Data 05/[address] in observation 05/26 1257 Active Discharge Patient 05/26 1257 Active SWALLOW EVALUATION 05/26 UNK Active Lab Add-on Test 05/26 UNK Active VTE Mechanical Prophylaxis 05/26 UNK Active Vital Signs 05/26 UNK Complete NIH Stroke Scale 05/26 UNK Active THYROID STIMULATING HORMONE 05/25 1730 Complete TROPONIN LEVEL 05/25 1730 Complete FREE T4 05/25 1730 Complete VITAMIN B12 05/25 1730 Complete STREP PNEUMO URINARY ANTIGEN 05/25 1637 Complete LEGIONELLA URINARY ANTIGEN 05/25 1637 Complete Current Medications Sig/[place] Start time Last Medication Dose Stop Time Status Admin Amantadine HCl 100 MG BID 05/26 2200 AC 05/27 1018 Metoprolol Tartrate 75 MG BID 05/26 2200 CAN (Lopressor) Senna/Docusate Sodium 1 TAB DAILY 05/26 1449 AC 05/27 (Senokot S) 1018 Acetaminophen 650 MG Q6P PRN 05/26 1415 AC (Tylenol) Metoprolol Tartrate 75 MG BID 05/25 2200 AC 05/27 (Lopressor) 1019 Laboratory Tests 05/27/16 0902: CBC w Diff NO MAN DIFF REQ, RBC 3.58 L, MCV 98.2, MCH 32.7 H, RDW 14.2, MPV 10.9 H, Gran % 55.4, Lymphocytes % 28.5, Monocytes % 9.8 H, Eosinophils % 5.7 H, Basophils % 0.6, Absolute Granulocytes 3.0, Absolute Lymphocytes 1.5, Absolute Monocytes 0.5, Absolute Eosinophils 0.3, Absolute Basophils 0, PUBS MCHC 33.3 05/27/16 0610: Anion Gap 7, Estimated GFR > 60, BUN/Creatinine Ratio 18.8, PT 19.2 H, INR 1.84 H Microbiology 05/26 1744 LOWER RESP: Respiratory Culture - COLB 05/26 1744 LOWER RESP: Gram Stain - COLB Initial ED EKG: normal axis, normal intervals, normal p-waves, normal QRS complex, normal sinus rhythm Hand-Off Endorsed To: GIANNA MORGAN,JORDAN Hassan Endorsed Time: 0700 Pending: consult, other (SANTOS MORGAN,MICKEY Taveras) Comments: 05/26/2016 7:31:15 AM patient signed out to me by Dr. Platt at shift change management consultant. 05/26/2016 8:46:40 AM patient's nurse is notified me that her blood pressure is low at this time. IV fluids ordered. 05/26/2016 12:01:48 PM I reevaluated the patient's left knee find no acute changes other than postoperative swelling and well-healing wound. However based on the patient's clinical evaluation I do not feel that she is capable of outpatient treatment at this time. I feel she still appears to be medically too frail. I feel she is still at a considerable fall risk if she were to attempt ambulation. (GIANNA MORGAN,JORDAN Hassan) Departure Departure Disposition: STILL A PATIENT Condition: Stable Referrals: JENNY THAYER MD Departure Forms: Customer Survey General Discharge Information Observation Note Spoke With: MATY LACKEY MD Physician Advisor Notified: ARVIND MORGAN,THOMAS García Place Patient In: Non-ED OBS Care Area Rationale for Observation: My rational for observation is as follows [ORTHO, PT EVALUATION, MEDICATIONS, ]. (MATY LACKEY MD) Departure Clinical Impression Primary Impression: Weakness Secondary Impressions: Gait instability Urinary incontinence Qualifiers: Urinary Incontinence type: unspecified incontinence Qualified Code: R32 - Unspecified urinary incontinence UTI (urinary tract infection) Qualifiers: Urinary tract infection type: acute cystitis Hematuria presence: without hematuria Qualified Code: N30.00 - Acute cystitis without hematuria (GIANNA MORGAN,JORDAN Hassan) ED Attending Observation Observation Re-Evaluation: I have reevaluated GABINO VELAZCO on 05/26/16 at 0224. The physical findings that support the continued need to observe this patient include [pt resting comfortably... to be evaluated by PT / casemangement in AM]. (SANTOS MORGAN,MICKEY Taveras) Observation Re-Evaluation: I have reevaluated GABINO VELAZCO on 05/26/16 at 1200. The physical findings that support the continued need to observe this patient include . Observation Discharge: I have reevaluated GABINO VELAZCO on 05/26/16 at 1255. The patient is: (): Stable for discharge (): To be admitted to Nursing Floor ([X]): To be placed in Observation on Nursing Floor (): For transfer to other facility The patient was being observed for [WEAKNESS, GAIT INSTABILITY] As a result of that observation, I have determined [PT REQUIRES PLACEMENT IN INPT OBSERVATION]. (JORDAN KATZ MD)
--- NOTE | 2016-05-25 17:20 | NUR ---
ZIYAD AT BEDSIDE TO CHON SCHULZ
--- NOTE | 2016-05-25 17:27 | NUR ---
PT URINE SENT TO THE LAB THREE TUBES
--- NOTE | 2016-05-25 17:44 | NUR ---
LABS DRAWN ANS SENT ALONG WITH [id number] PT WHILE BEEN GIVEN INCONTINENT CARE NOTED TO HAVE REDDENED INDENTATION ON BRIDGE OF NOSE FROM GLASSES. PT ALSO HAS BILATERAL UNDER ARM AND BREAST FUNGAL RASH VERY REDDENED AND LEFT HIP REDNESS.
[2016-05-25 17:49] LABS: ABSOLUTE BASOPHIL COUNT 0 /CUMM (0.0-0.2); ABSOLUTE EOSINOPHIL COUNT 0.1 /CUMM (0.0-0.7); ABSOLUTE GRANULOCYTE CT 5.7 /CUMM (1.4-6.5); BASOPHIL % 0.6 % (0.0-2.0); EOSINOPHIL % 1.4 % (0-5); GRANULOCYTE % 73.2 % (42.2-75.2); HEMATOCRIT 38.9 % (37-47); MEAN CORPUSCULAR HGB 32.2 PG (27.0-31.0); MEAN CORPUSCULAR HGB CONC 32.9 G/DL (33.0-37.0); MEAN CORPUSCULAR VOLUME 97.7 FL (81.0-99.0); MEAN PLATELET VOLUME 10.8 FL (7.4-10.4); PLATELET COUNT 132 /CUMM (130-400); RBC DISTRIBUTION WIDTH 14.4 % (11.5-14.5); RED BLOOD CELL CT 3.98 /CUMM (4.20-5.40); WHITE BLOOD CELL COUNT 7.7 /CUMM (4.8-10.8)
[2016-05-25 17:55] LABS: PT 22.7 SEC (9.4-12.5)
[2016-05-25] MEDS ORDERED: WARFARIN SODIUM3 M1 PO (17:55)
[2016-05-25] MEDS ORDERED: METOPROLOL TART25 M1 PO (17:55)
[2016-05-25] MEDS ORDERED: LOPRESSOR50 M1 PO (17:56)
--- NOTE | 2016-05-25 18:52 | NUR ---
PT NOTED SLEEPIING PER FAMILY SHE WAS SLEEIPING IN W/C FOR PAST 2 DAYS AND DID NOT SLEEP WELL. PT STS TO HOLD OFF ON EATING FOR NOW. IV NS INFUSING ORDERED
--- NOTE | 2016-05-25 19:10 | NUR ---
GABINO VELAZCO Nurse Note by: CANDELARIA NASSAR I agree with the UPHOLSTERY REPAIRER findings/evaluation of this patient's condition. Entered by: CANDELARIA NASSAR Date: 05/25/16 Time: 1909
--- NOTE | 2016-05-25 20:45 | NUR ---
PT AROUSED AND REPOSITIONED AND FED AND ATE WELL MEDICATED WELL
--- NOTE | 2016-05-25 22:13 | NUR ---
PT NOTED CRYING OUT AND STS HER LEGS CRAMPING. PT REPOSITIONED AND VITALS TAKEN AND MEDICATED ORDERED
--- NOTE | 2016-05-25 22:30 | NUR ---
ASSUMED CARE OF PT PER BILL AUGUSTINE. PT MOVED TO HOSPITAL BED/CHANGED/ REPOSITIONED FOR COMFORT. CALL KATZ GIVEN TO PT, TV TURNED ON. PT RESTING WITH RR, WILL CONTINUE TO MONITOR
--- NOTE | 2016-05-26 01:14 | NUR ---
PT SLEEPING WITH RR, BILATERAL CHEST RISE AND FALL NOTED. WILL CONTINUE TO MONITOR
--- NOTE | 2016-05-26 04:31 | NUR ---
PT SLEEPING WITH RR, BILATERAL CHEST RISE AND FALL NOTED. PT KICKED OFF BLANKET, THIS RN TURNED DOWN HEAT IN RM FOR PT COMFORT. WILL CONTINUE TO MONITOR
--- NOTE | 2016-05-26 04:45 | NUR ---
PT TURNED AND REPOSITIONED. PT USED BED GE TO URINATE. THIS RN AND WOJCIECH CORTÉS HELPED CLEAN PT. PT VS CHECKED, TEMP 99.0, DR GRAHAM INFORMED. PT MEDICATED WITH 975MG TYLENOL PO PER EMAR.
--- NOTE | 2016-05-26 05:43 | NUR ---
PTS TEMP RECHECKED AFTER MEDICATED WITH TYLENOL, PTS TEMP 98.9
--- NOTE | 2016-05-26 07:12 | NUR ---
PT PLACED ON BEDPAN INCONTINENT OF URINE
--- NOTE | 2016-05-26 08:06 | NUR ---
PT EVALUATED BY THERAPY PT REQUIRES ADDITIONAL REHAB CONT. TO BE MADE AWARE
--- NOTE | 2016-05-26 08:52 | NUR ---
BP 88/50. DR KATZ AWARE. 500CC NS BOLUS HUNG PER ORDER. PT SITTING UP EATING BREAKFAST.
--- NOTE | 2016-05-26 09:00 | NUR ---
PT SLEEPING AT THIS TIME
--- NOTE | 2016-05-26 11:13 | NUR ---
PT HYPONTENSIVE BP MEDS HELD PER DR. KATZ
--- NOTE | 2016-05-26 11:24 | NUR ---
INCONTINENT CARE GIVEN
--- NOTE | 2016-05-26 11:58 | NUR ---
05/26 CASE MGMT- MET WITH PT INRODUCED SELF AND EXPLAINED ROLE OF HEAD OF ART. PT MADE AWARE PHYSICAL THERAPY SUGGESTING SHORT TERM REHAB WHEN MEDICALLY CLEARED. PT STATES CHOICES ARE [facility]. CASE MGMT WILL CONTINUE TO FOLLOW.
--- NOTE | 2016-05-26 12:37 | NUR ---
PT MOVED TO [facility] AND TAKEN TO MRI.
--- NOTE | 2016-05-26 12:42 | NUR ---
[facility] TRANSFERR[facility] AND TAKEN TO MRI
--- NOTE | 2016-05-26 13:36 | NUR ---
PT BROUGHT BACK FROM MRI INCONTINENT CARE PROVIDED
--- NOTE | 2016-05-26 14:24 | History & Physical ---
DANIEL MORGAN,AGATA 05/26/16 1423: General Information and HPI MD Statement: I have seen and personally examined GABINO VELAZCO and documented this H&P. The patient is a 75 year old F who presented with a patient stated chief complaint of [ unable to stand from wheelchair]. Source of Information: patient, old records, EMS Exam Limitations: clinical condition, poor historian History of Present Illness: Patient is a 75 YO F was BIBA to the [facility] ED for further evaluation of urinary incontinence and inability to get up from chair. She was recently discharged from [facility] 04/30/16 after evaluating for alteredmentation after left knee replacement by to [place] then to home last monday. After going to home, she had generalized weakness, unable to get up from the wheel chair. She urinated in her wheel chair which was drenched with urine when her neice visited her. Apparently she was sleeping in her chair for the last 2 days. She lives with her who is more confused and senile. In the ER she was found to have muffled speech which according to patient is worse from baseline. She reports her urinary incontinence was present for the past 2yrs. She denies any fever, dysuria, chills, burning. she also reports some shortness of breath with exertion. Reports she was able to perform her daily activities (may not be reliable). She denies any double vision, difficulty swallowing, changes in sensation. PMH significant for hypertension, Parkinson's disease, Left knee replacement , diverticular disease, colonic polyp (s/p polypectomy 05/16/16) total right knee replacement, obesity. Her doctors include - rachell; - orthopedics; PCP - . Allergies/Medications Allergies: Coded Allergies: Penicillins (Intermediate, RASH 04/27/16) grapefruit (UNKNOWN 04/27/16) Home Med list Acetaminophen (Tylenol Arthritis) 650 MG TABLET.ER 1 TAB PO TID PRN pain ( Reported) Amantadine HCl (Amantadine) 100 MG TABLET 100 MG PO BID PARKINSONS (Reported) Metoprolol Tartrate (Lopressor) 50 MG TABLET 1.5 TAB PO BID HTN (Reported) Oxycodone HCl 5 MG TABLET 1-2 TAB PO Q6P PRN moderate pain (Reported) Sennosides/Docusate Sodium (Senna S Tablet) 8.6 MG-50 MG TABLET 1 TAB PO DAILY constipation (Reported) Warfarin Sodium 3 MG TABLET 1 TAB PO DAILY BLD THINNER (Reported) Compliance With Home Meds: UNKNOWN Past History Travel History Traveled to [place] past 21 day No Medical History Neurological: Parkinson's disease EENT: NONE Cardiovascular: hypertension Respiratory: NONE Gastrointestinal: NONE Hepatic: NONE Renal: NONE Musculoskeletal: degen joint disease, osteoarthritis, PRIOR LEFT WRIST FRACTURE Psychiatric: NONE Endocrine: hypothyroidism, (??) Blood Disorders: NONE Cancer(s): NONE [employer] SUPER[employer]OR/Reproductive: NONE History of MRSA: No History of VRE: No History of CDIFF: No Surgical History Surgical History: non-contributory ECHO Results (as available) Date of last Echo 04/12/16 EF% 65 Past Family/Social History Psychosocial History Where do you live? Home Who Do You Live With? spouse Services at Home: None Smoking Status: Unknown If Ever Smoked ETOH Use: denies use Illicit Drug Use: denies illicit drug use Living Will? no Functional Ability ADLs Independent: dressing, eating, toileting, bathing. Ambulation: walker, non-ambulatory IADLs Needs Assist: shopping, housework, finances, food prep, telephone, transportation, medication admin. Review of Systems Review of Systems Constitutional: Reports: see HPI. EENTM: Reports: see HPI. Cardiovascular: Reports: see HPI. GI: Reports: see HPI. Genitourinary: Reports: urgency (incontinence). Neurological/Psychological: Reports: tremors. Hematologic/Endocrine: Reports: see HPI. Comments ROS negative except the above. Exam & Diagnostic Data Last 24 Hrs of Vital Signs/I&O Vital Signs Date Time Temp Pulse Resp B/P B/P Pulse O2 O2 Flow FiO2 Mean Ox Delivery Rate 05/26 1329 97.6 88 18 120/70 96 Room Air 05/26 1110 98.2 76 18 102/68 95 Room Air 05/26 0945 141/61 05/26 0837 98.0 68 20 88/50 94 Room Air 05/26 0543 98.9 05/26 0542 98.9 05/26 0439 99.0 73 20 129/61 94 Room Air 05/25 2101 98.7 76 18 128/56 94 05/25 1652 97 Room Air 05/25 1639 97.6 10 18 146/70 97 Room Air Intake & Output 05/26 1600 05/26 0800 05/26 0000 Intake Total Output Total 300 Balance -300 Output, Urine 300 Patient 95.254 kg 95.254 kg Weight Weight Reported by Patient Measurement Method Physical Exam General Appearance Alert, Oriented X3, Cooperative Skin No Rashes, No Breakdown HEENT Atraumatic, PERRLA, EOMI Neck Supple Cardiovascular Normal S1, Normal S2 Lungs Clear to Auscultation, Normal Air Movement Abdomen Normal Bowel Sounds, Soft, No Tenderness Neurological Normal Tone, Sensation Intact, Cranial Nerves 3-12 NL, mask like face, resting tremor present, sensations intack. Strength 5/5 upper extremities, 2/5 lower extremities, mumbling voice Body Front and Back (Adult) 1) organized edema and weakness. Last 24 Hrs of Labs/Josue: Laboratory Tests 05/25/162033: Lactic Acid Cancelled 05/25/16 1730: Anion Gap 13, Estimated GFR > 60, BUN/Creatinine Ratio 28.8 H, Glucose 100 H, Lactic Acid 1.3, Calcium 10.0, Total Bilirubin 1.4 H, AST 28, ALT 33, Alkaline Phosphatase 186 H, Troponin I < 0.01, Total Protein 7.8, Albumin 4.2, Globulin 3.6, Albumin/Globulin Ratio 1.2, Vitamin B12 Pending, TSH Pending, Free T4 1.16, PT 22.7 H, INR 2.18 H, CBC w Diff NO MAN DIFF REQ, RBC 3.98 L, MCV 97.7, MCH 32.2 H, RDW 14.4, MPV 10.8 H, Gran % 73.2, Lymphocytes % 16.0 L, Monocytes % 8.8, Eosinophils % 1.4, Basophils % 0.6, Absolute Granulocytes 5.7, Absolute Eosinophils 0.1, Absolute Basophils 0, PUBS MCHC 32.9 L 05/25/16 1725: Urine Color YEL, Urine Clarity CLEAR, Urine pH 6.0, Ur Specific [place] >= 1.030 , Urine Protein NEG, Urine Ketones NEG, Urine Nitrite NEG, Urine Bilirubin NEG, Urine Urobilinogen 0.2, Ur Leukocyte Esterase NEG, Ur Microscopic SEDIMENT EXAMINED, Urine RBC 3-5, Urine WBC RARE, Ur Epithelial Cells RARE, Urine Bacteria RARE H, Urine Mucus FEW, Urine Hemoglobin TRACE-INTACT, Urine Glucose NEG Microbiology 04/19 1750 BLOOD: Blood Culture - RES 05/25 1730 BLOOD: Blood Culture - RES 05/25 1725 URINE ROUT: Urine Culture - RES Diagnostic Data EKG Results NSR Assessment/Plan Assessment: Patient is a 75 YO F was BIBA to the [facility] ED for further evaluation of urinary incontinence and inability to get up from chair. Significant PMH include parkinsons disease, HTN, recent left knee replacement (04/27/16 still on coumadin ) ER Course VS Afebrile, HR 76,RR 18, BP 146/70mmHg, on room air Labs are unremarkable Imaging Head MRI - No acute intracranial pathology Stable T2 signal changes throughout the supratentorial white matter, likely mild chronic microangiopathy. Heterogeneous marrow signal throughout the bony calvarium and partially imaged cervical spine that can be further assessed with a whole body bone scan to exclude osseous metastatic disease Lumbar MRI IMPRESSION: 1. There is an acute/subacute compression fracture the body of L5 as described above 2. There is an anterolisthesis of L4 on L5. There are bilateral foraminal disc protrusions and there is moderate to severe central stenosis. 3. There is multilevel spondylosis throughout the lumbar spine, with foraminal narrowing, facet arthropathy and central stenosis as described above. There is a levoscoliosis. 4. The urinary bladder is moderately distended. PLAN Continue to monitor in observation Generalized weakness/deconditioning * MRI didnt reveal any acute intracranial pathology * PT/OT/speech therapy (muffled speech) * Lumbar spinal stenosis on MRI of spine (no history of trauma), could have contributed to the weakness. * Although lower extremities appear weak, rectal tone is presenved and denies any bowel incontinence - Could also be secondary to recent surgery Parkinsons disease * Follows * Mask like face and resting tremor present * On amantadine at home Urinary incontinence * Appears chronic * Not on any medications Chronic stable conditions History of hypertension - continue metorprolol tartarate 75mg BID. Recent left knee replacement - on warfarin 3mg (needed till 6 weeks after surgery). DVT Prophylaxis * On warfarin Code Status * DNR/DNI As Ranked By This Provider Problem List: 1. Urinary incontinence Qualifiers Urinary Incontinence type: unspecified incontinence Qualified Code: R32 - Unspecified urinary incontinence 2. Gait instability 3. Status post total left knee replacement 4. Hypertension Core Measures/Miscellaneous Acute Coronary Syndrome ACS Diagnosis: No Cerebrovascular Accident CVA/TIA Diagnosis: No Congestive Heart Failure CHF Diagnosis: No Venous Thromboembolism VTE Risk Factors: Immobility, paresis [facility] prophylaxis d/t: No contraindications No VTE Pharm Prophylaxis d/t: No contraindications VTE Diagnosis: No VTE Type: NONE VTE Confirmed by (Test): NONE Severe Sepsis Severe Sepsis Present: No Septic Shock Septic Shock Present: No Miscellaneous Documentation Attending Case Discussed With: ZIYAD MORGAN,MATY Primary Care Physician: NIKOLAY CARDOZA MD Patient sees these Specialists and Level of Patient Care: Telemetry CHARLENE TERRY MD 05/26/16 1502: Resident Review Statement Resident Statement: examined this patient, discussed with purchasing internship, reviewed EMR data (avail), reviewed images, amended to note Other Findings: This is 75-year-old female with past medical history of Parkinson disease, hypertension, osteoarthritis status post bilateral total knee replacement with most recent left total knee replacement on 04/27/2016 with her postoperative course complicated with postoperative delirium, diverticular disease who was recently discharged from [facility] after completing 3 weeks of rehabilitation for left TKR was sent into hospital by visiting nurse after patient noted having generalized weakness with difficulty moving out of chair and patient was noted incontinent of urine while sitting in chair. Patient noted having slow speech but noted alert oriented 3 without any confusion. Patient complained of generalized weakness and is concerned about stroke. Patient denies any headache, swallowing difficulty, vision change, sensory deficit. Also denies any urinary burning/pain or dysuria. Her vitals on admission were T 97.6, HR 100, RR 18, BP 146/70, O2 sat 97% on room air. On physical exam patient is alert oriented 3 in no acute distress, noted slow garbled speech, HEENT PERRLA EOMI, neck supple, heart S1-S2 normal without murmur, lungs clear on auscultation, abdomen soft nontender nondistended with preserved bowel sounds, cranial nerve II-12 intact, strength 5/5 in upper extremities and 4/5 in lower extremities (decreased strength in lower extremity due to pain in knees), and noted nonpitting bilateral leg swelling and varicose vein Labs were significant for H&H 12.8/38.9, BUN 23, creatinine 0.8, total bilirubin 1.4, alkaline phosphatase 186, INR 2.18 UA noted negative with pending urine and blood culture Echo done on 04/12/2016 and revealed normal LVEF of 65% EKG noted poor quality, regular rhythm at rate of 89, normal axis, no acute ST-T changes, QTC 477 MRI brain without contrast revealed no acute intracranial finding and noted stable T2 signal changes throughout the supratentorial white matter suggestive of mild chronic microangiopathy unchanged from previous MRI. Also noted heterogenous marrow signal throughout the bony calvarium and partially imaged cervical spine which needs to be further assessed with whole-body bone scan to exclude Osseous metastatic disease. MRI L-spine showed acute/subacute compression fracture of the body of L5, anterolisthesis of L4 on L5 with bilateral foraminotomies disc protrusion and moderate to severe central canal stenosis, multilevel spondylosis throughout the lumbar spine with foraminal narrowing, facet arthropathy and central stenosis. Assessment and plan: 1. Generalized weakness - Ruled out stroke with MRI brain which did not suggest any acute/subacute infarct - observe on telemetry for 24 hours - PT OT consult - Likely secondary to severe lumbar stenosis as MRI suggests severe lumbar stenosis, noted normal rectal tone with preserved sensation - Neuro check every 4 hourly - Pain management 2. Parkinson disease 3. Hypertension Continue home dose metoprolol 4. Urinary incontinence 5. DVT prophylaxis On Coumadin 6. DNR/DNI LANA PACHECO MD 05/27/16 0921: Attending MD Review Statement Attending Statement Attending MD Statement: examined this patient, discuss w/resident/PA/GEOCHEMICAL LABORATORY TECHNICIAN, agreed w/resident/PA/GEOCHEMICAL LABORATORY TECHNICIAN, reviewed EMR data (avail) Attending Assessment/Plan: 75F PMH Parkinson's, recent left knee replacement, recent stay at [facility] and discharged home, brought in due to overall generalized weakness, unable to ambulate, and urinary incontinence. Concern initially for CVA, but MRI head negative. Patient is lethargic but answers questions appropriately. Vitals stable, labs reviewed. Exam shows LLE weakness that is unchanged from prior admission. Left knee is mildly swollen without notable warmth, erythema, or effusion. Single set blood cultures Plan - Observation in telemetry - Follow blood cultures - PT eval - Continue home medications - Continue Coumadin
--- NOTE | 2016-05-26 14:27 | MRI REPORT ---
EXAMINATION: MR BRAIN WITHOUT CONTRAST CLINICAL INFORMATION: Gait weakness. Question CVA. COMPARISON: Brain MRI 04/28/2016. TECHNIQUE: MRI of the brain without contrast was obtained using routine sequences. FINDINGS: Motion degraded study. Pattern of T2 signal changes throughout the supratentorial white matter is likely stable accounting for motion artifact. No definite new parenchymal signal abnormality. Cavum septum lucidum at vergae. There is no hydrocephalus, extra-axial surface collection, or herniation. The major flow voids at the skull base are preserved. There is no acute infarct on diffusion-weighted imaging. There is no intracranial hemorrhage on the gradient recalled echo acquisition. The midline structures are normal. The cerebellar tonsils are normally positioned. The cerebellum and brainstem are normal. The craniocervical junction is normal. Heterogeneous marrow signal throughout the bony calvarium and partially imaged cervical spine that can be further assessed with a bone scan to exclude osseous metastatic disease. The visualized soft tissues are unremarkable. IMPRESSION: - No acute intracranial findings. No acute infarcts. - Stable T2 signal changes throughout the supratentorial white matter, likely mild chronic microangiopathy. - Heterogeneous marrow signal throughout the bony calvarium and partially imaged cervical spine that can be further assessed with a whole body bone scan to exclude osseous metastatic disease.
--- NOTE | 2016-05-26 14:37 | MRI REPORT ---
EXAMINATION: MR LUMBAR SPINE WITHOUT CONTRAST CLINICAL INFORMATION: Back pain, urinary incontinence and unsteady gait. Assess for cauda equina, disc disease or radiculopathy. COMPARISON: Plain films 06/23/2008. The prior study demonstrated a levoscoliosis. There was a mild anterolisthesis of L4 on L5. TECHNIQUE: MRI of the lumbar spine without contrast was obtained using routine sequences. Images are degraded by patient motion artifact on multiple sequences. FINDINGS: VERTEBRAL BODIES AND PARASPINAL STRUCTURES: There is a levoscoliosis. There is a grade 1 anterolisthesis of L4 on L5. There are mild retrolistheses of T12 on L1, L1 on L2 and L2 on L3. There is multilevel narrowing of intervertebral disc height with loss of signal from the discs. There is loss of vertebral body height of L5 centrally of approximately 40%. This vertebral body has moderately increased T2 and STIR signal relatively diffusely. Abnormal signal also extends into the left pedicle. These findings are consistent with an acute/subacute compression fracture. Vertebral body heights elsewhere are maintained. Overall, marrow signal is slightly heterogenous consistent with fatty changes. There are bilateral parapelvic cysts and there is a cyst at the upper pole of the left kidney. The bladder is moderately distended. The uterus appears atrophic. There is fatty atrophic change of the paraspinal musculature. CONUS MEDULLARIS AND CAUDA EQUINA: Normal, terminating at the level of L1. The cauda equina nerve roots and filum terminale appear normal. SPINAL LEVELS: T11-T12: There is a central and left-sided disc protrusion which mildly distorts the ventral thecal sac. There is mild facet arthropathy. There is no compression of the spinal cord and the neural foramina are patent. T12-L1: There is a posterior disc osteophyte complex. There is a left foraminal disc protrusion. There is no spinal cord compression or central stenosis. L1-L2: There is moderate bilateral facet arthropathy. There is a broad-based posterior disc protrusion extending into the inferior neural foramina bilaterally. There appears to be bilateral subarticular recess narrowing. There is mild central stenosis. L2-L3: There is moderate bilateral facet arthropathy. There is a broad-based posterior disc protrusion extending into the inferior neural foramina bilaterally. There is narrowing of the subarticular recesses and there is [id number] central stenosis. L3-L4: There is moderate to severe facet arthropathy and ligamenta flava hypertrophy. There is a broad-based posterior disc protrusion extending into the neural foramina bilaterally, more prominent on the left. There is narrowing of the subarticular recesses bilaterally. There is [id number] central stenosis. L4-L5: There is severe bilateral facet arthropathy. There is unroofing of the disc as a result of the anterolisthesis and there are bilateral foraminal disc protrusions with impingement on the exiting L4 nerve roots. There is subarticular recess narrowing bilaterally. There is posterior protrusion of the superior body of L5 into the spinal canal secondary to the compression fracture. There is moderate to severe central stenosis. L5-S1: There is moderate bilateral facet arthropathy. Posterior disc contour is normal. There is no central stenosis or foraminal narrowing. IMPRESSION: 1. There is an acute/subacute compression fracture the body of L5 as described above 2. There is an anterolisthesis of L4 on L5. There are bilateral foraminal disc protrusions and there is moderate to severe central stenosis. 3. There is multilevel spondylosis throughout the lumbar spine, with foraminal narrowing, facet arthropathy and central stenosis as described above. There is a levoscoliosis. 4. The urinary bladder is moderately distended.
[2016-05-26] MEDS ORDERED: TYLENOL ARTHRI650 M1 PO (14:48)
[2016-05-26] MEDS ORDERED: OXYCODONE HCL5 M1 PO (14:48)
[2016-05-26] MEDS ORDERED: SENNA S TABLET1 EACH PO (14:49)
--- NOTE | 2016-05-26 15:29 | NUR ---
PT CARE ASSUMED BY THIS RN AT THIS TIME. INCONTINENCE CARE PROVIDED.
--- NOTE | 2016-05-26 16:38 | NUR ---
PT DINNER TRAY AT BEDSIDE. PT SLEEPING AT THIS TIME, NURSING WILL CONTINUE TO MONITOR.
--- NOTE | 2016-05-26 17:28 | NUR ---
PT FAMILY AT BEDSIDE ASSISTING PT WITH DINNER, OFFERS NO COMPLAINTS AT THIS TIME.
--- NOTE | 2016-05-26 17:31 | NUR ---
[employer] [facility] ASSIGNMENT [phone]
--- NOTE | 2016-05-26 17:52 | NUR ---
REPORT GIVEN TO NAZIA WHEELER. [facility]RIBUT[facility] CALLED FOR PT TRANSPORT.
[2016-05-26 18:48] VITALS: BP 128/90
--- NOTE | 2016-05-26 19:45 | NUR ---
OBSERVATION ASSESSMENT. PT ARRIVED ON FLOOR AT 18:30 PM ACCOMPANIED BY ED RN SUSAN. BAUTISTA. INCONTINENT CARE RECEIVED AT THIS TIME. BOTTOM RED/BLANCHING. TRACE EDEMA TO BLE. O2 SAT STABLE ON RA. PLACED ON TELE MONITOR. ORIENTED TO ROOM & CALL LIGHT.
[2016-05-26 23:55] VITALS: BP 118/70
--- NOTE | 2016-05-27 07:33 | PN- Housestaff ---
DANIEL MORGAN,AGATA 05/27/16 0732: Subjective Follow-up For: generalized weakness Parkinsons disease Tele-Events Since Last Visit: Sinus rhythm 62-70, No overnight events Subjective: I saw and examined the patient today morning She is lying on her bed, reports she is in no pain. No overnight issues. speech is mumbling. During the day she didnt tolerate any physical therapy with her left knee and shouted a lot. Review of Systems Constitutional: Reports: see HPI. Comments: ROS negative except the above Objective Last 24 Hrs of Vital Signs/I&O Vital Signs Date Time Temp Pulse Resp B/P B/P Pulse O2 O2 Flow FiO2 Mean Ox Delivery Rate 05/26 2355 97.9 68 20 118/70 94 Room Air 05/26 1848 97.8 78 20 128/90 96 Room Air 05/26 1617 97.2 76 17 122/68 95 Room Air 05/26 1329 97.6 88 18 120/70 96 Room Air 05/26 1110 98.2 76 18 102/68 95 Room Air 05/26 0945 141/61 05/26 0837 98.0 68 20 88/50 94 Room Air Intake & Output 05/27 0800 05/27 0000 05/26 1600 Intake Total 300 Output Total Balance 300 Intake, Oral 300 Physical Exam General Appearance: Alert, Oriented X3, Cooperative Skin: No Rashes, No Breakdown HEENT: Atraumatic, PERRLA, EOMI Neck: Supple Cardiovascular: Normal S1, Normal S2, No Murmurs Lungs: Clear to Auscultation, Normal Air Movement Abdomen: Normal Bowel Sounds, Soft, No Tenderness Neurological: Normal Tone, Sensation Intact Extremities: No Clubbing, No Cyanosis, increased swelling and stiffiness in the left knee without any erthema Vascular: Normal Pulses, Pulses Symmetrical Current Medications: Current Medications Sig/[place] Start time Last Medication Dose Route Stop Time Status Admin Acetaminophen 650 MG Q6P PRN 05/26 1415 AC PO Amantadine HCl 100 MG BID 05/26 2199 AC 05/26 PO 2353 Amantadine HCl 100 MG BID 05/25 2199 DC 05/25 PO 221 Influenza Virus 0.5 ML 1000 05/27 1000 AC Vaccine IM 05/27 1001 Metoprolol Tartrate 75 MG BID 05/26 2199 CAN PO Metoprolol Tartrate 75 MG BID 05/25 2199 AC 05/26 PO 2353 Oxycodone HCl 5 MG Q6P PRN 05/26 1815 AC PO Senna/Docusate Sodium 1 TAB DAILY 05/26 1449 AC 05/26 PO 1549 Sodium Chloride 500 ML BOLUS ONE 05/26 0900 DC 05/26 IV 05/26 0959 0850 Warfarin Sodium 3 MG ONCE ONE 05/26 1830 DC 05/26 PO 05/26 1831 2353 Last 24 Hrs of Lab/Josue Results Last 24 Hrs of Labs/Mics: Laboratory Tests 05/27/16 1655: C-React Prot High Sens Pending 05/27/16 1535: ESR Westergren 48 H 05/27/16 0902: CBC w Diff NO MAN DIFF REQ, RBC 3.58 L, MCV 98.2, MCH 32.7 H, RDW 14.2, MPV 10.9 H, Gran % 55.4, Lymphocytes % 28.5, Monocytes % 9.8 H, Eosinophils % 5.7 H, Basophils % 0.6, Absolute Granulocytes 3.0, Absolute Lymphocytes 1.5, Absolute Monocytes 0.5, Absolute Eosinophils 0.3, Absolute Basophils 0, PUBS MCHC 33.3 05/27/16 0610: Anion Gap 7, Estimated GFR > 60, BUN/Creatinine Ratio 18.8, Total Bilirubin 0.6, Direct Bilirubin 0.3, AST 20, ALT 30, Alkaline Phosphatase 138 H, Total Protein 6.1 L, Albumin 3.0 L, PT 19.2 H, INR 1.84 H Microbiology 05/27 1655 BLOOD: Blood Culture - RECD 05/27 1523 BLOOD: Blood Culture - RECD Lines/Diet/Fluids Lines: peripheral lines Assessment/Plan Assessment: Patient is a 75 YO F was BIBA to the [facility] ED for further evaluation of urinary incontinence and inability to get up from chair. Significant PMH include parkinsons disease, HTN, recent left knee replacement (04/27/16 still on coumadin ) ER Course VS Afebrile, HR 76,RR 18, BP 146/70mmHg, on room air Labs are unremarkable Imaging Head MRI - No acute intracranial pathology Stable T2 signal changes throughout the supratentorial white matter, likely mild chronic microangiopathy. Heterogeneous marrow signal throughout the bony calvarium and partially imaged cervical spine that can be further assessed with a whole body bone scan to exclude osseous metastatic disease Lumbar MRI IMPRESSION: 1. There is an acute/subacute compression fracture the body of L5 as described above 2. There is an anterolisthesis of L4 on L5. There are bilateral foraminal disc protrusions and there is moderate to severe central stenosis. 3. There is multilevel spondylosis throughout the lumbar spine, with foraminal narrowing, facet arthropathy and central stenosis as described above. There is a levoscoliosis. 4. The urinary bladder is moderately distended. PLAN Continue to monitor in observation Generalized weakness/deconditioning * MRI didnt reveal any acute intracranial pathology * PT/OT/speech therapy (muffled speech) * Lumbar spinal stenosis on MRI of spine (no history of trauma), could have contributed to the weakness. * - came to evaluate her and really disappointed regarding lack of physical activity in her leg. * We will proceed with STR to improve her physical activity. ??Septic Prosthetic joint * Blood cultures from ER grew Coagulase negative Gram positive cocci which could be contiminant -- However patient is a high risk for infection given recent replacement surgery * So we will repeat cultures, ESR is 48, CRP is and LFTs are improving * If her cultures are negative tomorrow she is good to discharge for STR. Parkinsons disease * Follows * Mask like face and resting tremor present * On amantadine at home - we will continue that for now Urinary incontinence * Appears chronic * Not on any medications PLEASE AVOID NARCOTICS IF POSSIBLE PATIENT HAS TENDENCY TO GO IN TO DELIRIUM WITH HIGH DOSES. USE TYELNOL FIRST FOR THE PAIN CONTROL. Chronic stable conditions History of hypertension - continue metorprolol tartarate 75mg BID. Recent left knee replacement - on warfarin 3mg (needed till 6 weeks after surgery till 06/08/16) DVT Prophylaxis * On warfarin Code Status * DNR/DNI Problem List: 1. Parkinsonism 2. Gait instability 3. Urinary incontinence 4. Hypertension 5. Weakness Pain Ratin Pain Location: left knee Pain Goal: Pain 4 or less Pain Plan: Tylenol prn Tomorrow's Labs & Rationales: cbc to monitor if any infection LANA PACHECO MD 05/27/16 1121: Attending Review Statement Attending Statement Attending Statement: examined this patient, discuss w/resident/PA/DOUGHNUT [employer]KER, agreed w/resident/PA/DOUGHNUT MAKER, reviewed EMR data (avail) Attending Assessment/Plan: 75F PMH Parkinson's, recent left knee replacement, recent stay at [facility] and discharged home, brought in due to overall generalized weakness, unable to ambulate, and urinary incontinence. Concern initially for CVA, but MRI head negative. Patient is lethargic but answers questions appropriately. Vitals stable, labs reviewed. Exam shows LLE weakness that is unchanged from prior admission. Left knee is mildly swollen without notable warmth, erythema, or effusion. Blood cultures growing GPC in 2 sets. Plan - Observation in telemetry - Obtain ID and orthopedic consults - Follow blood cultures - PT eval - Continue home medications - Continue Coumadin
[2016-05-27 08:21] LABS: PT 19.2 SEC (9.4-12.5)
[2016-05-27 08:42] VITALS: BP 136/80
[2016-05-27 09:51] LABS: ABSOLUTE BASOPHIL COUNT 0 /CUMM (0.0-0.2); ABSOLUTE EOSINOPHIL COUNT 0.3 /CUMM (0.0-0.7); ABSOLUTE LYMPH COUNT 1.5 /CUMM (1.2-3.4); ABSOLUTE MONOCYTE COUNT 0.5 /CUMM (0.10-0.60); BASOPHIL % 0.6 % (0.0-2.0); EOSINOPHIL % 5.7 % (0-5); GRANULOCYTE % 55.4 % (42.2-75.2); HEMATOCRIT 35.2 % (37-47); MEAN CORPUSCULAR HGB 32.7 PG (27.0-31.0); MEAN CORPUSCULAR HGB CONC 33.3 G/DL (33.0-37.0); MEAN CORPUSCULAR VOLUME 98.2 FL (81.0-99.0); MEAN PLATELET VOLUME 10.9 FL (7.4-10.4); PLATELET COUNT 112 /CUMM (130-400); RBC DISTRIBUTION WIDTH 14.2 % (11.5-14.5); RED BLOOD CELL CT 3.58 /CUMM (4.20-5.40); WHITE BLOOD CELL COUNT 5.4 /CUMM (4.8-10.8)
--- NOTE | 2016-05-27 10:00 | RADIOLOGY REPORT ---
EXAMINATION: XR KNEE, LEFT CLINICAL INFORMATION: Weakness and swelling. Status post total knee arthroplasty 04/27/2016. COMPARISON: None TECHNIQUE: Four views of the left knee. FINDINGS: There are postoperative changes consistent with left total knee arthroplasty with metallic distal femoral and proximal tibial components and resurfacing of the patella with a radiolucent spacer. There is no evidence of hardware failure or associated fracture. There is a probable joint effusion. IMPRESSION: Postoperative changes, joint effusion is suspected.
--- NOTE | 2016-05-27 12:13 | PN- Orthopedic ---
Surgical Brief Attending Note Brief Attending Note: Patient seen this morning. Asked for consultation from medical service. She is about 4 weeks status post left total knee arthroplasty. She was admitted to the hospital with complaints of some weakness in the left leg. She has positive blood cultures. She does not complain of any significant pain in the left knee except stiffness with range of motion. On physical exam the patient's awake. Examination of the left knee reveals no erythema. No sign of skin warmth to touch compared to the right knee. No significant fluctuance or effusion noted. The left knee is swollen. Limited range of motion of the knee is secondary to arthrofibrosis secondary to the knee replacement however the limited range of motion I am able to perform is not painful. The left lower 70 is neurovascular intact. Assessment status post left total knee arthroplasty with postoperative stiffness and swelling. Clinically there is no signs of infection of the left total knee arthroplasty. X-rays reviewed which showed well-positioned components. Plan continue care per medicine. The patient needs to be set up for physical therapy at her facility or at home depending on where her disposition is. She should follow-up in the office within 2 weeks.
--- NOTE | 2016-05-27 13:22 | Cons- Infect Disease ---
General Information and HPI Consulting Request Date of Consult: 05/27/16 Requested By: KEREN BUNCH M.D Reason for Consult: Positive blood cultures 2 for gram-positive cocci in clusters Source of Information: patient, old records Exam Limitations: clinical condition History of Present Illness: This is a 75-year-old woman with Parkinson's disease, hypertension, osteoarthritis, status post right knee replacement 5 years prior to admission and left knee replacement 4 weeks prior to admission, with Vancomycin prophylaxis, with postop course complicated by delirium, attributed to narcotics , discharged to a rehabilitation facility on Coumadin and, to home, 2 days prior to admission, admitted on May 25 after she was brought to the emergency room with weakness, urinary incontinence and heavy feeling in both legs, with no history of fevers or chills and no report of pain in the left knee. On admission she was afebrile with stable blood pressure. Laboratory data revealed a white blood cell count of 8000, BUN/creatinine 23 and 0.8, bilirubin 1.4, alk phosphatase 186, INR 2.18. Urinalysis 3-5 RBC/rare WBCs. She was followed off antibiotics. On May 26 blood cultures 2 were reported positive for gram- positive cocci in clusters. She has remained afebrile since admission and white blood cell count has remained normal. At present she feels improved and offers no specific complaints. Allergies/Medications Allergies: Coded Allergies: Penicillins (Intermediate, RASH 04/27/16) grapefruit (UNKNOWN 04/27/16) Home Med List: Acetaminophen (Tylenol Arthritis) 650 MG TABLET.ER 1 TAB PO TID PRN pain ( Reported) Amantadine HCl (Amantadine) 100 MG TABLET 100 MG PO BID PARKINSONS (Reported) Metoprolol Tartrate (Lopressor) 50 MG TABLET 1.5 TAB PO BID HTN (Reported) Oxycodone HCl 5 MG TABLET 1-2 TAB PO Q6P PRN moderate pain (Reported) Sennosides/Docusate Sodium (Senna S Tablet) 8.6 MG-50 MG TABLET 1 TAB PO DAILY constipation (Reported) Warfarin Sodium 3 MG TABLET 1 TAB PO DAILY BLD THINNER (Reported) Past History Travel History Traveled to [place] past 21 day No Medical History Neurological: Parkinson's disease EENT: NONE Cardiovascular: hypertension Respiratory: NONE Gastrointestinal: NONE Hepatic: NONE Renal: NONE Musculoskeletal: degen joint disease, osteoarthritis, PRIOR LEFT WRIST FRACTURE Psychiatric: NONE Endocrine: hypothyroidism Blood Disorders: NONE Cancer(s): NONE JOB PLACEMENT OFFICER/Reproductive: NONE History of MRSA: No History of VRE: No History of CDIFF: No Isolation History: Standard Influenza Vaccine: 05/27/16 Surgical History Surgical History: knee replacement (bilateral) Psychosocial History Where Do You Live? Home Who Do You Live With? spouse Services at Home: None Smoking Status: Unknown If Ever Smoked ETOH Use: denies use Illicit Drug Use: denies illicit drug use Living Will? no Functional Ability ADLs Independent: dressing, eating, toileting, bathing. Ambulation: walker, non-ambulatory IADLs Needs Assist: shopping, housework, finances, food prep, telephone, transportation, medication admin. ECHO Results (as available) Date of last Echo 04/12/16 EF% 65 Review of Systems Review of Systems All Other Systems: Reviewed and Negative Exam & Diagnostic Data Last 24 Hrs of Vital Signs/I&O Vital Signs Date Time Temp Pulse Resp B/P B/P Pulse O2 O2 Flow FiO2 Mean Ox Delivery Rate 05/27 1316 Room Air 05/27 1312 Room Air 05/27 0842 97.9 70 20 136/80 94 Room Air 05/26 2355 97.9 68 20 118/70 94 Room Air 05/26 1848 97.8 78 20 128/90 96 Room Air 05/26 1617 97.2 76 17 122/68 95 Room Air 05/26 1329 97.6 88 18 120/70 96 Room Air Intake & Output 05/27 1600 05/27 0800 05/27 0000 Intake Total 240 300 Output Total Balance 240 300 Intake, Oral 240 300 Number 1 Bowel Movements Physical Exam Other Physical Findings: She is awake and alert in no acute distress, but she is tearful and emotional. She is afebrile. Skin reveals no rash. HEENT exam is negative. Neck is supple with no adenopathy. Lungs bibasilar crackles. Heart regular rhythm with no murmur. Abdomen is obese, soft, nontender with positive bowel sounds. Back no CVA tenderness. Extremities left knee mild swelling, with reasonable range of motion, with no erythema or tenderness and with incision clean, with no drainage ; no cyanosis, clubbing or edema of the lower extremities. Neuro mild left facial droop with mild dysarthria with no other focality appreciated. Last 24 Hours of Lab Results: Laboratory Tests 05/27 05/27 0902 0610 Chemistry Sodium (137 - 145 mmol/L) 141 Potassium (3.5 - 5.1 mmol/L) 4.5 Chloride (98 - 107 mmol/L) 105 Carbon Dioxide (22 - 30 mmol/L) 29 Anion Gap (5 - 16) 7 BUN (7 - 17 mg/dL) 15 Creatinine (0.5 - 1.0 mg/dL) 0.8 Estimated GFR (>60 ml/min) > 60 BUN/Creatinine Ratio (7 - 25 %) 18.8 Coagulation PT (9.4 - 12.5 SEC) 19.2 H INR (0.90 - 1.19) 1.84 H Hematology CBC w Diff NO MAN DIFF REQ WBC (4.8 - 10.8 /CUMM) 5.4 RBC (4.20 - 5.40 /CUMM) 3.58 L Hgb (12.0 - 16.0 G/DL) 11.7 L Hct (37 - 47 %) 35.2 L MCV (81.0 - 99.0 FL) 98.2 MCH (27.0 - 31.0 PG) 32.7 H RDW (11.5 - 14.5 %) 14.2 Plt Count (130 - 400 /CUMM) 112 L MPV (7.4 - 10.4 FL) 10.9 H Gran % (42.2 - 75.2 %) 55.4 Lymphocytes % (20.5 - 51.1 %) 28.5 Monocytes % (1.7 - 9.3 %) 9.8 H Eosinophils % (0 - 5 %) 5.7 H Basophils % (0.0 - 2.0 %) 0.6 Absolute Granulocytes (1.4 - 6.5 /CUMM) 3.0 Absolute Lymphocytes (1.2 - 3.4 /CUMM) 1.5 Absolute Monocytes (0.10 - 0.60 /CUMM) 0.5 Absolute Eosinophils (0.0 - 0.7 /CUMM) 0.3 Absolute Basophils (0.0 - 0.2 /CUMM) 0 PUBS MCHC (33.0 - 37.0 G/DL) 33.3 Last 24 Hours of Josue Results: Blood cultures 2 May 25 positive for coag-negative Staph Urine culture May 25 negative Urine strep pneumo antigen and Legionella antigen May 25 negative Diagnostic Data Recent Imaging Findings: MRI of the lumbar spine May 26 reveals an acute/subacute compression fracture in the body of L5, anterolisthesis of L4 on L5 with moderate to severe central stenosis and multilevel spondylosis throughout the lumbar spine; moderately distended bladder MRI of the head May 26 no acute process X-ray of the left knee May 27 reveals no evidence of hardware failure or fracture, with a probable joint effusion Assessment/Plan Assessment/Plan Impression: This is a 75-year-old woman with a history of Parkinson's disease, hypertension and osteoarthritis, status post left knee replacement 4 weeks prior to admission , admitted on May 25 with weakness, found to be afebrile with a normal white blood cell count, with blood cultures 2 positive for coag-negative Staph. The significance of these positive blood cultures is unclear, particularly as she has no fever or leukocytosis, and I suspect that they may represent contamination. It is not clear how they were drawn and the possibility that they were both drawn from one venipuncture must be considered. She does have a small joint effusion and, given her recent surgery, the possibility of an infected left knee prosthesis must also be considered. She would require a left knee arthrocentesis to rule this out, but have discussed with Orthopedics who feels that this should be deferred at this time. Her elevated bilirubin and alkaline phosphatase might suggest a biliary process, though she has no GI symptoms or abdominal tenderness, and coag-negative Staph would be an unusual biliary pathogen. The MRI of her lumbar spine did suggest bladder distention and, with her urinary incontinence, urinary retention should be ruled out. Suggestion: 1. Repeat blood cultures 2 2. Could check an ESR and CRP 3. Would investigate how blood cultures were drawn in the ER (i.e. 1 or 2 venipunctures) 4. Repeat bilirubin and alk phosphatase and consider further evaluation, for example right upper quadrant ultrasound, if they remain elevated 5. Bladder scan to rule out urinary retention 6. Would pursue left arthrocentesis if repeat blood cultures are positive or if she develops increased left knee symptoms 7. Continue to follow off antibiotics pending above Consult Acknowledgment - Thank you for your consult request.
[2016-05-27 16:03] VITALS: BP 116/70
--- NOTE | 2016-05-27 16:45 | Patient Discharge Instructions ---
Discharge Instructions General Discharge Information You were seen/treated for: Generalized weakness Special Instructions: Please follow up with in a week Please follow up with in a week Please follow up with your PCP in a week Please take warfarin for a total of 6 weeks after the knee replacement (till 06/08) Please make sure you stop taking warfarin after jun 08 2016 Diet Recommended Diet: Heart Healthy Activity Activity Self Limited: Yes Acute Coronary Syndrome Inclusion Criteria At DC or during hospital stay patient has or had the following: ACS DIAGNOSIS No Discharge Core Measures Meds if any: Prescribed or Continued at Discharge Meds if any: NOT Prescribed or Continued at Discharge Congestive Heart Failure Inclusion Criteria At DC or during hospital stay patient has or had the following: CHF DIAGNOSIS No Discharge Core Measures Meds if any: Prescribed or Continued at Discharge Meds if any: NOT Prescribed or Continued at Discharge Cerebrovascular accident Inclusion Criteria At DC or during hospital stay patient has or had the following: CVA/TIA Diagnosis No Discharge Core Measures Meds if any: Prescribed or Continued at Discharge Meds if any: NOT Prescribed or Continued at Discharge Venous thromboembolism Inclusion Criteria VTE Diagnosis No VTE Type NONE VTE Confirmed by (Test) NONE Discharge Core Measures - Per Current guidelines, there needs to be overlap - treatment for the first 5 days of Warfarin therapy. - If discharged on Warfarin prior to 5 days of - overlap therapy, the patient will need to be - assessed for post discharge needs including - *Post discharge parental anticoagulation - *Warfarin and/or parental anticoagulation education - *Follow up date to check INR post discharge At least 5 days overlap therapy as Inpatient No Meds if any: Prescribed or Continued at Discharge Note: Overlap Therapy is Warfarin and Anticoagulant Meds if any: NOT Prescribed or Continued at Discharge
[2016-05-28 00:31] VITALS: BP 118/70
[2016-05-28 07:54] VITALS: BP 118/74
[2016-05-28 08:17] LABS: ABSOLUTE BASOPHIL COUNT 0 /CUMM (0.0-0.2); ABSOLUTE EOSINOPHIL COUNT 0.5 /CUMM (0.0-0.7); ABSOLUTE GRANULOCYTE CT 3.2 /CUMM (1.4-6.5); ABSOLUTE LYMPH COUNT 1.9 /CUMM (1.2-3.4); ABSOLUTE MONOCYTE COUNT 0.8 /CUMM (0.10-0.60); BASOPHIL % 0.7 % (0.0-2.0); GRANULOCYTE % 49.7 % (42.2-75.2); HEMATOCRIT 36.8 % (37-47); MEAN CORPUSCULAR HGB 32.7 PG (27.0-31.0); MEAN CORPUSCULAR HGB CONC 33.3 G/DL (33.0-37.0); MEAN CORPUSCULAR VOLUME 98.1 FL (81.0-99.0); MEAN PLATELET VOLUME 11.3 FL (7.4-10.4); PLATELET COUNT 118 /CUMM (130-400); RBC DISTRIBUTION WIDTH 14.6 % (11.5-14.5); RED BLOOD CELL CT 3.76 /CUMM (4.20-5.40); WHITE BLOOD CELL COUNT 6.5 /CUMM (4.8-10.8)
--- NOTE | 2016-05-28 08:52 | PN- Housestaff ---
Subjective Follow-up For: generalized weakness Parkinsons disease Complaints: no complaints Tele-Events Since Last Visit: nsr, hr 62-63, no events Subjective: patient followed-up today, she had no complaints, bradykinetic, has slow speech as well, no events overnight Review of Systems Constitutional: Reports: no symptoms. Objective Last 24 Hrs of Vital Signs/I&O Vital Signs Date Time Temp Pulse Resp B/P B/P Pulse O2 O2 Flow FiO2 Mean Ox Delivery Rate 05/28 1446 98.8 65 18 118/74 05/28 0754 98.8 65 18 118/74 94 Room Air 05/28 0031 98.6 61 12 118/70 94 Room Air 05/28 0000 94 Room Air Intake & Output 05/28 1600 05/28 0800 05/28 0000 Intake Total 240 120 Output Total 400 100 Balance -160 20 Intake, Oral 240 120 Output, Urine 400 100 Patient 95.254 kg Weight Physical Exam General Appearance: Alert, Oriented X3, Cooperative, No Acute Distress Other Physical Findings: Skin: No Rashes, No Breakdown HEENT: Atraumatic, PERRLA, EOMI Neck: Supple Cardiovascular: Normal S1, Normal S2, No Murmurs Lungs: Clear to Auscultation, Normal Air Movement Abdomen: Normal Bowel Sounds, Soft, No Tenderness Neurological: Normal Tone, Sensation Intact Extremities: No Clubbing, No Cyanosis, increased swelling and stiffiness in the left knee without any erthema Vascular: Normal Pulses, Pulses Symmetrical Current Medications: Current Medications Sig/[place] Start time Last Medication Dose Route Stop Time Status Admin Acetaminophen 650 MG Q6P PRN 05/26 1415 DCD PO Amantadine HCl 100 MG BID 05/26 2199 DCD 05/28 PO 0832 Metoprolol Tartrate 75 MG BID 05/25 220 DCD 05/28 PO 0835 Senna/Docusate Sodium 1 TAB DAILY 05/26 1449 DCD 05/28 PO 0833 Last 24 Hrs of Lab/Josue Results Last 24 Hrs of Labs/Mics: Laboratory Tests 05/28/16 0635: CBC w Diff NO MAN DIFF REQ, RBC 3.76 L, MCV 98.1, MCH 32.7 H, RDW 14.6 H, MPV 11.3 H, Gran % 49.7, Lymphocytes % 29.8, Monocytes % 12.8 H, Eosinophils % 7.0 H, Basophils % 0.7, Absolute Granulocytes 3.2, Absolute Lymphocytes 1.9, Absolute Monocytes 0.8 H, Absolute Eosinophils 0.5, Absolute Basophils 0, PUBS MCHC 33.3 Assessment/Plan Assessment: Patient is a 75 YO F was BIBA to the [place] ED for further evaluation of urinary incontinence and inability to get up from chair. Significant PMH include parkinsons disease, HTN, recent left knee replacement (04/27/16 still on coumadin ) PLAN Monitoring in observation for the following issues: Generalized weakness/deconditioning * MRI didnt reveal any acute intracranial pathology * PT/OT/speech therapy (muffled speech) * Lumbar spinal stenosis on MRI of spine (no history of trauma), could have contributed to the weakness. * - came to evaluate her and really disappointed regarding lack of physical activity in her leg. * We will proceed with STR to improve her physical activity. Suspected septic Prosthetic joint, ruled out * Blood cultures from ER grew Coagulase negative Gram positive cocci which could be contiminant -- However patient is a high risk for infection given recent replacement surgery * Repeat cultures sent yesterday were negative till afternoon, ruling out any infection at this point. Thus she is discharged today to STR. Parkinsons disease * Follows * Mask like face and resting tremor present, wlong with other features of Parkinsonism * On amantadine at home - we will continue that for now Urinary incontinence * Appears chronic * Not on any medications PLEASE AVOID NARCOTICS IF POSSIBLE PATIENT HAS TENDENCY TO GO IN TO DELIRIUM WITH HIGH DOSES. USE TYELNOL FIRST FOR THE PAIN CONTROL. Chronic stable conditions History of hypertension - continue metorprolol tartarate 75mg BID. Recent left knee replacement - on warfarin 3mg (needed till 6 weeks after surgery till 06/08/16) DVT Prophylaxis * On warfarin Code Status * DNR/DNI Problem List: 1. Parkinsonism 2. Gait instability 3. Urinary incontinence 4. Hypertension 5. Weakness 6. Obesity 7. Status post total left knee replacement Pain Ratin Pain Location: - Pain Goal: Pain 4 or less Pain Plan: prn Tomorrow's Labs & Rationales: -
--- NOTE | 2016-05-28 14:38 | Discharge Summary ---
Visit Information Visit Dates Admission Date: 05/25/16 Discharge Date: 05/28/16 Hospital Course Course Attending Physician: LANA PACHECO MD Primary Care Physician: NIKOLAY CARDOAZ MD Hospital Course: Ms Storey is a 75-year-old female with past medical history of Parkinson's disease, recent left knee replacement, recent stay at a short-term rehabilitation and discharged home, and was brought to the emergency due to generalized weakness, unable to ambulate, and what appears to be chronic urinary incontinence. She was ruled out for CVA and sepsis as well. Orthopedic service and infectious disease service was consulted. As she remains afebrile, with no leukocytosis, and lab tests appearing benign at this point, first set of blood cultures coming back positive for coagulase negative staph aureus which is a possible contamination, and a repeat blood culture remaining negative, she is being discharged to a short-term nursing facility with follow-up with her primary care physician, neurologist Dr. Phillips for Parkinson's disease, orthopedics Dr. Garcia for the knee replacement follow- up within two weeks. Patient requires physical therapy continued after discharge. Of note, if patient starts developing high-grade fever, worsening of symptoms, then with a question of septic prosthetic joint, she has to be reevaluated in the hospital. Patient needs to start taking warfarin for a total of 6 weeks since her knee replacement, that is until 06/25/2016, and NOT after that. As time of discharge, her hemoglobin is 12.3, hematocrit 36.8, platelet count 118, WBC 6.5. INR is 1.84. Vital signs stable. Allergies: Coded Allergies: Penicillins (Intermediate, RASH 04/27/16) grapefruit (UNKNOWN 04/27/16) Significant Procedures: Lastest X-ray of left knee: FINDINGS: There are postoperative changes consistent with left total knee arthroplasty with metallic distal femoral and proximal tibial components and resurfacing of the patella with a radiolucent spacer. There is no evidence of hardware failure or associated fracture. There is a probable joint effusion. IMPRESSION: Postoperative changes, joint effusion is suspected. DICTATED BY: CHRISTINE CARRANZA MD DATE/TIME DICTATED:05/27/16953 PSYCHOLOGY PHYSICIAN:MALYIN DATE/TIME TRANSCRIBED:05/27/16953 Disposition Summary Disposition Principal Diagnosis: Generalized weakness/deconditioning (ruled out sepsis) Additional Diagnosis: Parkinson's disease, hypertension and osteoarthritis, status post left knee replacement 4 weeks prior to admission, urinary incontinence Discharge Disposition: SNF Discharge Instructions General Discharge Information Code Status: Do Not Resucitate/Intubat Patient's Diet: Heart healthy diet Patient's Activity: As tolerated Follow-Up Instructions/Appts: Please follow up with in a week Please follow up with in a week Please follow up with your PCP in a week Please take warfarin for a total of 6 weeks after the knee replacement (till 06/08) Please make sure you stop taking warfarin after jun 08 2016 Medications at Discharge Discharge Medications: Stop taking the following medications: Oxycodone HCl (Oxycodone HCl) 5 MG TABLET ORAL EVERY SIX HOURS NEEDED as needed for moderate pain Continue taking these medications: Amantadine HCl (Amantadine) 100 MG TABLET 100 Milligram ORAL TWICE DAILY Comments: GIVEN 05/28/16 @ 0835 Warfarin Sodium (Warfarin Sodium) 3 MG TABLET 1 Tablet ORAL DAILY Qty = 10 Instructions: please adjust the dose according to INR to keep INR 2-3 Stop taking warfarin after 06/09/2015 as per surgery Comments: GIVEN 05/27/16 @ 3924 Metoprolol Tartrate (Lopressor) 50 MG TABLET 1.5 Tablet ORAL TWICE DAILY Comments: GIVEN 05/28/16 @ 0835 Acetaminophen (Tylenol Arthritis) 650 MG TABLET.ER 1 Tablet ORAL THREE TIMES DAILY as needed for pain Comments: GIVEN 05/28/16 @ 0445 Sennosides/Docusate Sodium (Senna S Tablet) 8.6 MG-50 MG TABLET 1 Tablet ORAL DAILY Comments: GIVEN 05/28/16 @ 0844 Copies To: SONY MORGAN,NIKOLAY Valenzuela Attending MD Review Statement Documenting Attending: PABLITO MORGAN,STEVEN Ayoub Other Findings: please see my separate attending note for more details
[2016-05-28 14:46] VITALS: BP 118/74
--- NOTE | 2016-05-28 17:43 | PN- Att Addend ---
Attending MD Review Statement Attending Statement Attending MD Statement: examined this patient, discuss w/resident/PA/CHANNEL SALES MANAGER, agreed w/resident/PA/CHANNEL SALES MANAGER, reviewed EMR data (avail), discussed w/case mgmt Attending Assessment/Plan: Laboratory Tests 05/28/16 0635: CBC w Diff NO MAN DIFF REQ, RBC 3.76 L, MCV 98.1, MCH 32.7 H, RDW 14.6 H, MPV 11.3 H, Gran % 49.7, Lymphocytes % 29.8, Monocytes % 12.8 H, Eosinophils % 7.0 H, Basophils % 0.7, Absolute Granulocytes 3.2, Absolute Lymphocytes 1.9, Absolute Monocytes 0.8 H, Absolute Eosinophils 0.5, Absolute Basophils 0, PUBS MCHC 33.3 Vital Signs Date Time Temp Pulse Resp B/P B/P Pulse O2 O2 Flow FiO2 Mean Ox Delivery Rate 05/28 1446 98.8 65 18 118/74 05/28 0754 98.8 65 18 118/74 94 Room Air 05/28 0031 98.6 61 12 118/70 94 Room Air 05/28 0000 94 Room Air Patient seen and examined at bedside. Discussed with patient the care plan. Patient is being discharged to subacute rehabilitation today. Her blood culture so far has been negative and previous blood cultures grew coagulase negative staph which was thought to be contaminant. Please see the discharge summary for more details.
== END 2016-05-28 16:00 ==
LOC: ERH 16:21 → ERHI 19:54 → EDBEDREQTM 05-26 17:02 → EDBEDREQDT 05-26 17:02 → ERHI 05-26 17:02 → EDBEDREQ 05-26 17:02 → ENRESERV 05-26 17:12 → 1NO 05-26 18:22 → ENPENDDIS 05-28 14:38 → 1NO 05-28 16:00
PROVIDERS: Internal Medicine; ADMIT Emergency Medicine
DX: R53.1 Weakness (principal); G20 Parkinson's disease; I10 Essential (primary) hypertension; M19.90 Unspecified osteoarthritis, unspecified site; E03.9 Hypothyroidism, unspecified; R32 Unspecified urinary incontinence; Z79.01 Long term (current) use of anticoagulants
CPT/HCPCS: 70551; 72148; ERO; 73562-LT; 81001; 82436; 87040; 87070; 87086; 87147; 87449; 87450; 90662; 93005; 93010; 97110-GP; 97140-GP; 97162-GP; 97530-GP; G0378; G8978-GP; G8979-GP; G8996-GN; G8997-GN; G8998-GN; G9017; J7040